=== PATIENT | male | born 1945 | race Caucasian/White ===

== ENCOUNTER 2016-10-01 05:38 | Inpatient (IN) | payer MEDICARE, BC ==
[~2016-10-01] VITALS: Ht 188 cm; Wt 90.7 kg
[2016-10-01] VITALS (12 sets, daily range): BP systolic 102–144; BP diastolic 65–87
[2016-10-01] MEDS ORDERED: DOXYCYCLINE HY100 M2 PO (06:59)
[2016-10-01] MEDS ORDERED: ATORVASTATIN CA20 MG ORAL (06:59)
[2016-10-01] MEDS ORDERED: ceFAZolin sod 1 GM in NS 55 ML IVPB ONE (07:00)
[2016-10-01] MEDS ORDERED: Zemuron 50mg/5ml Inj IV ONE (07:30)
[2016-10-01] MEDS ORDERED: Neostigmine 1mg/ml 10ml Inj ONE (07:30)
[2016-10-01] MEDS ORDERED: Succinylcholine 20mg/ml 10ml vial ONE (07:30)
[2016-10-01] MEDS ORDERED: ProvayBlue 5mg/ml 10ml amp INJ ONE (07:30)
[2016-10-01] MEDS ORDERED: Ketorolac 30mg Inj ONE (07:30)
[2016-10-01] MEDS ORDERED: Sterile Water Irrig 1000ml IRRIG ONE (07:30)
[2016-10-01] MEDS ORDERED: fentaNYL 250mcg/5ml ONE (07:30)
[2016-10-01] MEDS ORDERED: Glycopyrrolate 0.2mg/ml 1ml Vial ONE (07:30)
[2016-10-01] MEDS ORDERED: NS Irrig 1000ml ONE (07:30)
[2016-10-01] MEDS ORDERED: LR 1000ml ONE (07:30)
[2016-10-01] MEDS ORDERED: Propofol 10mg/ml 20ml IV ONE (07:30)
--- NOTE | 2016-10-01 07:39 | Pre-Procedure Note/Attestation ---
Pre-Procedure Note/Attestation Complete Prior to Procedure Planned Procedure: not applicable Procedure Narrative: open simple prostatectomy Indications for Procedure Pre-Operative Diagnosis: bph Attestation I attest that I discussed the nature of the procedure; its benefits; risks and complications; and alternatives (and the risks and benefits of such alternatives ), prior to the procedure, with the patient (or the patient's legal major account representative). I attest that, if there was a reasonable possibility of needing a blood transfusion, the patient (or the patient's legal major account representative) was given the [facility] standardized written summary, pursuant to the Edgard Antwon Blood Safety Act ([place] Health and Safety Code # 1645, as amended). I attest that I re-evaluated the patient just prior to the surgery and that there has been no change in the patient's H&P, except as documented below: Joseph Cedeno MD October 01, 2016 07:39
--- NOTE | 2016-10-01 07:40 | Brief Operative Note ---
Immediate Post Operative Note Operative Note Pre-op Diagnosis: bph Procedure: open simple prostatectomy Post-op Diagnosis: same Post-op Diagnosis: same as pre-op Surgeon: Shree Cedeno Manager Urology: Krishna Lea Anesthesia: general Specimen: yes Complications: none Condition: stable Estimated Blood Loss: minimal Implant(s) used?: No Joseph Cedeno MD October 01, 2016 07:40
--- NOTE | 2016-10-01 08:30 | Anethesia Preoperative Eval ---
Anesthesia Pre-op PMH/ROS General Date of Evaluation: October 01, 2016 Time of Evaluation: 07:15 Anesthesiologist: Raúl ASA Score: ASA 2 Mallampati Score Class I : Soft palate, uvula, fauces, pillars visible Class II: Soft palate, uvula, fauces visible Class III: Soft palate, base of uvula visible Class IV: Only hard plate visible Mallampati Classification: Class II Surgeon: Pao Diagnosis: BPH Urinary retention Surgical Procedure: Suprapubic prostateectomy Anesthesia History: none Social History: smoking - h/o Family History: no anesthesia problems Allergies: Coded Allergies: No Known Allergies (Unverified , 09/30/16) Medications: see eMAR Past Medical History Cardiovascular: Reports: HTN, Denies: CAD, ME, arrhythmia, other, valve dz Pulmonary: Denies: COPD, BOAZ, asthma, other Gastrointestinal/Genitourinary: Reports: GERD, Denies: CRI, ESRD, other Neurologic/Psychiatric: Denies: CVA, TIA, dementia, depression/anxiety, other Endocrine: Denies: DM, hypothyroidism, other, steroids HEENT: Denies: [place] (L), [place] (R), cataract (L), cataract (R), glaucoma, other Hematology/Immune: Denies: DVT, anemia, bleeding disorder, other Musculoskeletal/Integumentary: Reports: DJD, Denies: DDD, OA, RA, edema, other PMH Narrative: as above PSxH Narrative: L knee TKA excision of melanoma Anesthesia Pre-op Phys. Exam Physician Exam Last Vital Signs Date Time Temp Pulse Resp B/P Pulse Ox O2 Delivery O2 Flow Rate FiO2 10/01/16 06:31 97.8 60 18 127/81 95 Room Air Constitutional: NAD Neurologic: CN 2-12 intact Cardiovascular: RRR, no M/R/G Respiratory: CTA Gastrointestinal: S/NT/ND Airway Exam Mallampati Score: Class II Neck: stiff ROM: full Teeth: intact Dentures: no lower, no upper Anesthesia Pre-op A/P Labs see chart Studies Pre-op Studies: EKG - NSR Risk Assessment & Plan Assessment: ASA 2 Plan: GA with ETT Status Change Before Surgery: No Pre-Antibiotics Drug: Ancef 2 gr. Given Within 1 Hr of Incision: Yes Time Given: 08:02 LINDA BELTRAN M.D. October 01, 2016 08:29
[2016-10-01] MEDS ORDERED: LR 1000ml 1,000 ML IVLG SCH (08:43)
[2016-10-01] MEDS ORDERED: Midazolam 2mg/2ml Inj IVP PRN (08:45)
[2016-10-01] MEDS ORDERED: Hydromorphone 0.5mg/0.5ml inj IVP PRN (08:45)
[2016-10-01] MEDS ORDERED: DiphenhydrAMINE 50mg/ml Inj IVP PRN (08:45)
[2016-10-01] MEDS ORDERED: Meperidine 25mg/0.5ml Inj IV PRN (08:45)
[2016-10-01] MEDS ORDERED: Surgicel 4in x 8in TOPIC ONE (08:54)
[2016-10-01 10:00] LABS: BASOPHILS % (AUTO) 1.1 % (0.0-2.0); EOSINOPHILS % (AUTO) 3.9 % (0.0-3.0); LYMPHOCYTES % (AUTO) 22.3 % (20.0-45.0); MEAN CORPUSCULAR HEMOGLOBIN 29.3 PG (27.0-31.0); MEAN CORPUSCULAR HGB CONC 32.3 G/DL (32.0-36.0); MEAN CORPUSCULAR VOLUME 90 FL (80-99); MEAN PLATELET VOLUME 5.8 FL (6.5-10.1); MONOCYTES % (AUTO) 5.7 % (1.0-10.0); NEUTROPHILS % (AUTO) 67.1 % (45.0-75.0); PLATELET COUNT 253 K/UL (150-450); RED BLOOD COUNT 4.32 M/UL (4.70-6.10); RED CELL DISTRIBUTION WIDTH 13.8 % (11.6-14.8); WHITE BLOOD COUNT 10.1 K/UL (4.8-10.8)
--- NOTE | 2016-10-01 10:07 | Immediate Post-Op Evaluation ---
Immediate Post-Op Evalulation Immediate Post-Op Evalulation Procedure: Suprapubic prostateectomy Date of Evaluation: October 01, 2016 Time of Evaluation: 09:27 IV Fluids: 1600 Blood Products: Albumin 250 Estimated Blood Loss: 600 Urinary Output: 150 Blood Pressure Systolic: 128 Blood Pressure Diastolic: 76 Pulse Rate: 65 Respiratory Rate: 20 O2 Sat by Pulse Oximetry: 99 Temperature (Fahrenheit): 97.5 Pain Score (1-10): 2 Nausea: No Vomiting: No Complications none Patient Status: reacts, patent, extubated, none Hydration Status: adequate LINDA BELTRAN M.D. October 01, 2016 10:07
[2016-10-01 10:17] LABS: ANION GAP 10 (5-15); CALCIUM 8.9 mg/dL (8.6-10.2); CARBON DIOXIDE 28 mEQ/L (20-30); CHLORIDE 102 mEQ/L (98-107); CREATININE 0.9 mg/dL (0.7-1.2); HEMOLYSIS 4; POTASSIUM 4.4 mEQ/L (3.4-4.9); SODIUM 140 mEQ/L (135-145)
[2016-10-01] MEDS: HYDROmorphone 1mg/ml Carpuject IVP PRN (13:48)
[2016-10-01] MEDS: D5 1/2NS w/KCl 20mEq 1,000 ML IV SCH ×2 (13:56→23:04)
[2016-10-01] MEDS: ceFAZolin sod 2 GM in D5W 110 ML IV SCH ×2 (14:47→23:05)
[2016-10-01] MEDS: Docusate 100mg cap ORAL SCH (17:11)
[2016-10-01] MEDS ORDERED: ZOLPIDEM TARTRA10 MG ORAL (19:44)
[2016-10-01] MEDS ORDERED: OMEPRAZOLE40 M1 ORAL (19:44)
[2016-10-01] MEDS: Atorvastatin 20mg tab ORAL SCH (20:13)
[2016-10-01] MEDS ORDERED: Zolpidem 5mg tab ORAL PRN (20:30)
[2016-10-01] MEDS ORDERED: NS Irrig 4000ml IRRIG ONE (21:15)
[2016-10-01] MEDS ORDERED: Tubing IV Secondary IV ONE (21:15)
--- NOTE | 2016-10-01 21:49 | Operative Note - Dictated ---
DATE OF OPERATION: 10/01/2016 PREOPERATIVE DIAGNOSES: Benign prostatic hypertrophy and urinary retention. OPERATION: Simple retropubic prostatectomy. POSTOPERATIVE DIAGNOSES: Simple retropubic prostatectomy. SURGEON: Joseph Cedeno M.D. CUSTOMER SUCCESS MANAGER: Krishna Lea M.D. ANESTHESIA: General. FINDINGS: Enlarged prostate and trabeculated bladder. INDICATIONS FOR SURGERY: The patient had an enlarged prostate, close to 200 grams and urinary retention, intermittently catheterizing himself with severe irritating and obstructing voiding symptoms. Treatment options were explained to him in great length including all potential complications. He signed a consent. DESCRIPTION OF PROCEDURE: The patient was brought to the operating room, placed in supine position, prepped and draped in the standard fashion under general anesthesia. Pfannenstiel incision was made and retropubic space was opened. Rectus muscle was retracted lateral with [place] retractor. Prostate was mobilized from surrounding adhesions and fat and two stay sutures were placed on the superficial dorsal venous complex after the capsule of the prostate was opened and the prostate adenoma was enucleated in one piece using blunt and sharp dissection. After the prostate was removed, hemostasis was accomplished with electrocautery as well as with FLOSEAL. A 24 three-way Melendez catheter was placed into the bladder and capsule was closed prior to that, 5 o'clock and 7 o' clock [id number] 2-0 Vicryl sutures were placed and also bladder neck mucosa was advanced forward to prevent false passage in the urethra. After closure of the prostate, balloon was blown to 60 mL and mild traction was established. was started. There is no evidence of leak on the irrigation. The wound was closed in three layers and rona for the skin. The patient tolerated the procedure well. No evidence of complications. Joseph Cedeno M.D. DR: JAVI JOB#: [id number] CC:
[2016-10-02 00:18] VITALS: BP 111/67
[2016-10-02] MEDS: HYDROmorphone 1mg/ml Carpuject IVP PRN ×5 (02:59→23:35)
[2016-10-02 04:00] VITALS: BP 113/68
[2016-10-02 06:52] LABS: BASOPHILS % (AUTO) 0.4 % (0.0-2.0); EOSINOPHILS % (AUTO) 0.6 % (0.0-3.0); LYMPHOCYTES % (AUTO) 17.2 % (20.0-45.0); MEAN CORPUSCULAR HEMOGLOBIN 29.8 PG (27.0-31.0); MEAN CORPUSCULAR HGB CONC 33.7 G/DL (32.0-36.0); MEAN CORPUSCULAR VOLUME 89 FL (80-99); MEAN PLATELET VOLUME 6.1 FL (6.5-10.1); MONOCYTES % (AUTO) 7.6 % (1.0-10.0); NEUTROPHILS % (AUTO) 74.2 % (45.0-75.0); PLATELET COUNT 251 K/UL (150-450); RED BLOOD COUNT 3.86 M/UL (4.70-6.10); RED CELL DISTRIBUTION WIDTH 13.5 % (11.6-14.8); WHITE BLOOD COUNT 10.9 K/UL (4.8-10.8)
[2016-10-02 07:07] LABS: ANION GAP 10 (5-15); CALCIUM 8.7 mg/dL (8.6-10.2); CARBON DIOXIDE 31 mEQ/L (20-30); CHLORIDE 98 mEQ/L (98-107); CREATININE 0.7 mg/dL (0.7-1.2); HEMOLYSIS 4; POTASSIUM 4.5 mEQ/L (3.4-4.9); SODIUM 139 mEQ/L (135-145)
[2016-10-02 08:00] VITALS: BP 124/77
--- NOTE | 2016-10-02 08:06 | 48 Hour Post Anesthesia Eval ---
Post Anesthesia Evaluation Procedure: Suprapubic prostateectomy Date of Evaluation: October 02, 2016 Time of Evaluation: 06:30 Blood Pressure Systolic: 113 0: 68 Pulse Rate: 62 Respiratory Rate: 18 Temperature (Fahrenheit): 97.9 O2 Sat by Pulse Oximetry: 92 Airway: patent Nausea: No Vomiting: No Pain Intensity: 2 Hydration Status: adequate Cardiopulmonary Status: at baseline Mental Status/LOC: patient returned to baseline Post-Anesthesia Complications: 0 Follow-up care needed: N/A - further care as per primary team REHANA CUELLO M.D. October 02, 2016 08:06
[2016-10-02] MEDS ORDERED: NS Irrig 4000ml IRRIG ONE (08:20)
[2016-10-02] MEDS: D5 1/2NS w/KCl 20mEq 1,000 ML IV SCH (08:24)
[2016-10-02] MEDS: Docusate 100mg cap ORAL SCH ×2 (08:25→17:28)
[2016-10-02] MEDS: Tums 500mg ORAL PRN ×2 (10:49→10:50)
[2016-10-02 12:00] VITALS: BP 133/90
[2016-10-02] MEDS: Norco 5mg/325mg tab ORAL PRN ×2 (13:06→21:53)
--- NOTE | 2016-10-02 13:27 | Internal Med Progress Note ---
Subjective Physician Name IbanSelwyn cee Attending Physician Joseph Cedeno MD Current Medications Medications (Trade) Dose Ordered Sig/Bell Route PRN Reason Start Time Stop Time Status Last Admin Dose Admin Acetaminophen (Tylenol) 650 mg Q4H PRN ORAL FEVER 10/01/16 07:45 10/31/16 07:44 Acetaminophen/ Hydrocodone Bitart ([place] 5/325) 1 tab Q4H PRN ORAL Moderate Pain (Pain Scale 4-6) 10/01/16 07:45 10/08/16 07:44 10/02/16 13:06 Atorvastatin Calcium (Lipitor) 20 mg BEDTIME ORAL 10/01/16 21:00 10/31/16 20:59 10/01/16 20:13 Calcium Carbonate (Tums) 500 mg Q4H PRN ORAL INDIGESTION 10/02/16 11:00 11/01/16 10:59 10/02/16 10:50 Cefazolin Sodium/ Dextrose (Ancef/D5W) 55 ml @ 110 mls/hr Q8HR IVPB 10/02/16 14:00 10/09/16 13:59 Docusate Sodium (Colace) 100 mg TWICE A DAY ORAL 10/01/16 18:00 10/31/16 17:59 10/02/16 08:25 Hydromorphone HCl (Dilaudid) 1 mg Q3H PRN IVP Severe Pain (Pain Scale 7-10) 10/01/16 07:45 10/08/16 07:44 10/02/16 08:25 Ondansetron HCl (Zofran) 4 mg Q6H PRN IVP Nausea & Vomiting 10/01/16 07:45 10/31/16 07:44 10/02/16 02:59 Pantoprazole (Protonix) 40 mg DAILY ORAL 10/01/16 21:00 10/31/16 20:59 10/02/16 08:25 Temazepam (Restoril) 7.5 mg DAILYPRN PRN ORAL Insomnia 10/01/16 07:45 10/08/16 07:44 10/01/16 20:13 Zolpidem Tartrate 5 mg 5 mg HSPRN PRN ORAL Insomnia 10/01/16 20:30 10/31/16 20:29 10/01/16 21:43 Allergies: Coded Allergies: No Known Allergies (Unverified , 09/30/16) Subjective awake, alert, responsive, C/O GERD, feeling dizzy, No BM or gas, WBC: 10.9 Objective Last Vital Signs Date Time Temp Pulse Resp B/P Pulse Ox O2 Delivery O2 Flow Rate FiO2 10/02/16 12:00 97.5 73 18 133/90 93 Room Air 10/01/16 16:00 3.0 Laboratory Tests Test 10/02/16 06:00 White Blood Count 10.9 K/UL (4.8-10.8) H Red Blood Count 3.86 M/UL (4.70-6.10) L Hemoglobin 11.5 G/DL (14.2-18.0) L Hematocrit 34.2 % (42.0-52.0) L Mean Corpuscular Volume 89 FL (80-99) Mean Corpuscular Hemoglobin 29.8 PG (27.0-31.0) Mean Corpuscular Hemoglobin Concent 33.7 G/DL (32.0-36.0) Red Cell Distribution Width 13.5 % (11.6-14.8) Platelet Count 251 K/UL (150-450) Mean Platelet Volume 6.1 FL (6.5-10.1) L Neutrophils (%) (Auto) 74.2 % (45.0-75.0) Lymphocytes (%) (Auto) 17.2 % (20.0-45.0) L Monocytes (%) (Auto) 7.6 % (1.0-10.0) Eosinophils (%) (Auto) 0.6 % (0.0-3.0) Basophils (%) (Auto) 0.4 % (0.0-2.0) Sodium Level 139 mEQ/L (135-145) Potassium Level 4.5 mEQ/L (3.4-4.9) Chloride Level 98 mEQ/L (98-107) Carbon Dioxide Level 31 mEQ/L (20-30) H Anion Gap 10 (5-15) Blood Urea Nitrogen 17 mg/dL (7-23) Creatinine 0.7 mg/dL (0.7-1.2) Estimat Glomerular Filtration Rate mL/min (>60) Glucose Level 143 mg/dL (74-106) H Calcium Level 8.7 mg/dL (8.6-10.2) Intake and Output 10/01/16 10/02/16 19:00 07:00 Intake Total 62039 ml 1400 ml Output Total 35832 ml 1500 ml Balance 2060 ml -100 ml Intake Oral 600 ml 400 ml IV Total 2610 ml 1000 ml Other 30848 ml Output Urine Total 77650 ml 1500 ml Estimated Blood Loss 650 ml Objective General: No acute distress, awake and alert HEENT: NCAT, sclera anicteric, PERRL, EOMI. Neck: Supple, no significant jugular venous distention, Lungs: Fair inspiratory effort, no accessory muscle use, no Wheeze or Rales. Heart: Regular rate and rhythm, normal S1/S2, no murmurs Abdomen: soft, lower Q tenderness, Mild distended. decrease bowel sounds. Lower abdominal surgical incision with dry dressing. / Rectal: Melendez cath with red urine, Bladder irrigation. Extremities: No Cyanosis , clubbing or edema. Neuro: A&O x 3, Able to move all extremities Skin: warm, no rashes or lesions Psych: Normal mood and affect Assessment/Plan Assessment/Plan Benign prostatic hypertrophy and urinary retention s/p Simple retropubic prostatectomy (10/01/2016). GERD HL Melanoma on chest s/p resection Plan: Start Protonix Monitor Labs ambulation F/u with Dr. Cedeon recommendation. Selwyn Ferrera MD October 02, 2016 13:27
[2016-10-02] MEDS: ceFAZolin sod 1 GM in D5W 55 ML IVPB SCH ×2 (13:48→21:53)
[2016-10-02 16:00] VITALS: BP 120/70
[2016-10-02 20:00] VITALS: BP 116/77
[2016-10-02] MEDS: Atorvastatin 20mg tab ORAL SCH (21:53)
[2016-10-03 00:19] VITALS: BP 120/82
[2016-10-03] MEDS: Norco 5mg/325mg tab ORAL PRN (02:04)
[2016-10-03 04:00] VITALS: BP 144/94
[2016-10-03] MEDS: HYDROmorphone 1mg/ml Carpuject IVP PRN ×2 (04:03→09:32)
[2016-10-03 04:48] LABS: BASOPHILS % (AUTO) 0.4 % (0.0-2.0); EOSINOPHILS % (AUTO) 0.4 % (0.0-3.0); LYMPHOCYTES % (AUTO) 12.9 % (20.0-45.0); MEAN CORPUSCULAR HEMOGLOBIN 30.3 PG (27.0-31.0); MEAN CORPUSCULAR HGB CONC 34.3 G/DL (32.0-36.0); MEAN CORPUSCULAR VOLUME 88 FL (80-99); MEAN PLATELET VOLUME 6.2 FL (6.5-10.1); NEUTROPHILS % (AUTO) 78.4 % (45.0-75.0); PLATELET COUNT 246 K/UL (150-450); RED BLOOD COUNT 3.76 M/UL (4.70-6.10); RED CELL DISTRIBUTION WIDTH 13.1 % (11.6-14.8); WHITE BLOOD COUNT 15.4 K/UL (4.8-10.8)
[2016-10-03 05:14] LABS: ALANINE AMINOTRANSFERASE 12 U/L (3-41); ALBUMIN/GLOBULIN RATIO 1.6 (1.0-2.7); ANION GAP 10 (5-15); ASPARTATE AMINO TRANSFERASE 18 U/L (5-40); CALCIUM 8.3 mg/dL (8.6-10.2); CARBON DIOXIDE 28 mEQ/L (20-30); CHLORIDE 96 mEQ/L (98-107); CREATININE 0.5 mg/dL (0.7-1.2); HEMOLYSIS 0; MAGNESIUM 2.1 mg/dL (1.7-2.5); PHOSPHORUS 2.2 mg/dL (2.5-4.8); POTASSIUM 4.5 mEQ/L (3.4-4.9); SODIUM 134 mEQ/L (135-145); TOTAL PROTEIN 5.1 g/dL (6.6-8.7)
[2016-10-03] MEDS: ceFAZolin sod 1 GM in D5W 55 ML IVPB SCH ×3 (06:03→21:12)
[2016-10-03 08:00] VITALS: BP 132/85
[2016-10-03] MEDS: Docusate 100mg cap ORAL SCH ×2 (08:24→17:35)
[2016-10-03] MEDS ORDERED: Milk of Magnesia 30ml Ud ORAL PRN (11:00)
[2016-10-03 12:00] VITALS: BP 123/67
[2016-10-03] MEDS ORDERED: Norco 5mg/325mg tab ORAL PRN (12:00)
--- NOTE | 2016-10-03 12:01 | Internal Med Progress Note ---
Subjective Physician Name IbanSelwyn cee Attending Physician Joseph Cedeno MD Current Medications Medications (Trade) Dose Ordered Sig/Bell Route PRN Reason Start Time Stop Time Status Last Admin Dose Admin Acetaminophen (Tylenol) 650 mg Q4H PRN ORAL Fever/Headache/Mild Pain 10/03/16 12:00 11/02/16 11:59 Acetaminophen/ Hydrocodone Bitart ([place] 5/325) 1 tab Q4H PRN ORAL Severe Pain (Pain Scale 7-10) 10/03/16 12:00 10/10/16 11:59 Al Hydroxide/Mg Hydroxide (Mylanta) 30 ml Q6H PRN ORAL INDIGESTION 10/02/16 14:30 11/01/16 14:29 10/02/16 14:25 Atorvastatin Calcium (Lipitor) 20 mg BEDTIME ORAL 10/01/16 21:00 10/31/16 20:59 10/02/16 21:53 Calcium Carbonate (Tums) 500 mg Q4H PRN ORAL INDIGESTION 10/02/16 11:00 11/01/16 10:59 10/02/16 10:50 Cefazolin Sodium/ Dextrose (Ancef/D5W) 55 ml @ 110 mls/hr Q8HR IVPB 10/02/16 14:00 10/09/16 13:59 10/03/16 06:03 Docusate Sodium (Colace) 100 mg TWICE A DAY ORAL 10/01/16 18:00 10/31/16 17:59 10/03/16 08:24 Magnesium Hydroxide (Mom) 30 ml DAILYPRN PRN ORAL Constipation 10/03/16 11:00 11/02/16 10:59 Ondansetron HCl (Zofran) 4 mg Q6H PRN IVP Nausea & Vomiting 10/01/16 07:45 10/31/16 07:44 10/03/16 09:38 Pantoprazole 40 mg 40 mg DAILY ORAL 10/01/16 21:00 10/31/16 20:59 10/03/16 08:24 Temazepam (Restoril) 7.5 mg DAILYPRN PRN ORAL Insomnia 10/01/16 07:45 10/08/16 07:44 10/02/16 21:53 Allergies: Coded Allergies: No Known Allergies (Unverified , 09/30/16) Subjective awake, alert, responsive, C/O GERD / Back pain, No BM or gas, increase WBC: 15.4 Objective Last Vital Signs Date Time Temp Pulse Resp B/P Pulse Ox O2 Delivery O2 Flow Rate FiO2 10/03/16 08:00 97.0 91 20 132/85 97 Room Air 10/03/16 04:00 2.0 Laboratory Tests Test 10/03/16 04:20 White Blood Count 15.4 K/UL (4.8-10.8) H Red Blood Count 3.76 M/UL (4.70-6.10) L Hemoglobin 11.4 G/DL (14.2-18.0) L Hematocrit 33.2 % (42.0-52.0) L Mean Corpuscular Volume 88 FL (80-99) Mean Corpuscular Hemoglobin 30.3 PG (27.0-31.0) Mean Corpuscular Hemoglobin Concent 34.3 G/DL (32.0-36.0) Red Cell Distribution Width 13.1 % (11.6-14.8) Platelet Count 246 K/UL (150-450) Mean Platelet Volume 6.2 FL (6.5-10.1) L Neutrophils (%) (Auto) 78.4 % (45.0-75.0) H Lymphocytes (%) (Auto) 12.9 % (20.0-45.0) L Monocytes (%) (Auto) 8.0 % (1.0-10.0) Eosinophils (%) (Auto) 0.4 % (0.0-3.0) Basophils (%) (Auto) 0.4 % (0.0-2.0) Sodium Level 134 mEQ/L (135-145) L Potassium Level 4.5 mEQ/L (3.4-4.9) Chloride Level 96 mEQ/L (98-107) L Carbon Dioxide Level 28 mEQ/L (20-30) Anion Gap 10 (5-15) Blood Urea Nitrogen 28 mg/dL (7-23) H Creatinine 0.5 mg/dL (0.7-1.2) L Estimat Glomerular Filtration Rate mL/min (>60) Glucose Level 140 mg/dL (74-106) H Calcium Level 8.3 mg/dL (8.6-10.2) L Phosphorus Level 2.2 mg/dL (2.5-4.8) L Magnesium Level 2.1 mg/dL (1.7-2.5) Total Bilirubin 0.2 mg/dL (0.0-1.2) Aspartate Amino Transf (AST/SGOT) 18 U/L (5-40) Alanine Aminotransferase (ALT/SGPT) 12 U/L (3-41) Alkaline Phosphatase 53 U/L (40-129) Total Protein 5.1 g/dL (6.6-8.7) L Albumin 3.2 g/dL (3.5-5.2) L Globulin 1.9 g/dL Albumin/Globulin Ratio 1.6 (1.0-2.7) Microbiology Date/Time Source Procedure Growth Status 10/01/16 06:20 Nasal Nares MRSA Culture - Final NO METHICILLIN RESISTANT STAPH AUREUS... Complete Intake and Output 10/02/16 10/03/16 19:00 07:00 Intake Total 1015 ml 705 ml Output Total 750 ml 300 ml Balance 265 ml 405 ml Intake Oral 960 ml 650 ml IV Total 55 ml 55 ml Output Urine Total 750 ml 300 ml Objective General: No acute distress, awake and alert HEENT: NCAT, sclera anicteric, PERRL, EOMI. Neck: Supple, no significant jugular venous distention, Lungs: Fair inspiratory effort, no accessory muscle use, no Wheeze or Rales. Heart: Regular rate and rhythm, normal S1/S2, no murmurs Abdomen: soft, less lower Q tenderness, Mild distended. decrease bowel sounds. Lower abdominal surgical incision with dry dressing. / Rectal: Melendez cath with clear urine, DC Bladder irrigation. Extremities: No Cyanosis , clubbing or edema. Neuro: A&O x 3, Able to move all extremities Skin: warm, no rashes or lesions Psych: Normal mood and affect Assessment/Plan Assessment/Plan Benign prostatic hypertrophy and urinary retention s/p Simple retropubic prostatectomy (10/01/2016). GERD HL Melanoma on chest s/p resection leukocytosis Lower back pain Hyponatremia pre-renal azotemia. Plan: On Protonix Monitor Labs ambulation F/u with Dr. Cedeno recommendation. Start IVF @ 75 cc/hr start Lidoderm patch and Robaxin TID Selwyn Ferrera MD October 03, 2016 12:01
[2016-10-03] MEDS: Methocarbamol 500mg tab ORAL SCH ×2 (13:40→17:36)
[2016-10-03 16:00] VITALS: BP 146/94
[2016-10-03] MEDS ORDERED: NS Irrig 4000ml IRRIG ONE (18:24)
[2016-10-03] MEDS ORDERED: NS 275ml ONE (18:24)
[2016-10-03 20:27] VITALS: BP 134/76
[2016-10-03] MEDS: Atorvastatin 20mg tab ORAL SCH (21:11)
[2016-10-04] VITALS (7 sets, daily range): BP systolic 94–126; BP diastolic 49–72
[2016-10-04] MEDS: ceFAZolin sod 1 GM in D5W 55 ML IVPB SCH ×3 (06:24→22:00)
[2016-10-04 07:15] LABS: ANION GAP 12 (5-15); CALCIUM 7.8 mg/dL (8.6-10.2); CARBON DIOXIDE 28 mEQ/L (20-30); CHLORIDE 91 mEQ/L (98-107); CREATININE 0.7 mg/dL (0.7-1.2); HEMOLYSIS 3; MAGNESIUM 2.4 mg/dL (1.7-2.5); POTASSIUM 4.3 mEQ/L (3.4-4.9); SODIUM 131 mEQ/L (135-145)
[2016-10-04 08:13] LABS: MEAN CORPUSCULAR VOLUME 88 FL (80-99)
[2016-10-04 08:36] LABS: BASOPHILS % (AUTO) 0.4 % (0.0-2.0); EOSINOPHILS % (AUTO) 0.2 % (0.0-3.0); LYMPHOCYTES % (AUTO) 12.1 % (20.0-45.0); NEUTROPHILS % (AUTO) 79.3 % (45.0-75.0)
[2016-10-04 08:45] LABS: MEAN CORPUSCULAR HEMOGLOBIN 30.2 PG (27.0-31.0); MEAN CORPUSCULAR HGB CONC 34.3 G/DL (32.0-36.0); MEAN PLATELET VOLUME 6.4 FL (6.5-10.1); PLATELET COUNT 197 K/UL (150-450); RED BLOOD COUNT 2.39 M/UL (4.70-6.10); RED CELL DISTRIBUTION WIDTH 12.9 % (11.6-14.8); WHITE BLOOD COUNT 14.9 K/UL (4.8-10.8)
[2016-10-04] MEDS: Docusate 100mg cap ORAL SCH ×2 (09:00→18:00)
[2016-10-04 09:15] LABS: BAND NEUTROPHILS % (MANUAL) 2 % (0-8); LYMPHOCYTES % (MANUAL) 4 % (20-45); NEUTROPHILS % (MANUAL) 91 % (45-75); TOTAL CELLS COUNTED 100
[2016-10-04 09:16] LABS: ANISOCYTOSIS 1+; BASOPHILS % (MANUAL) 0 % (0-2); EOSINOPHILS % (MANUAL) 0 % (0-3); HYPOCHROMASIA 3+; PLATELET ESTIMATE ADEQUATE; PLATELET MORPHOLOGY NORMAL
[2016-10-04] MEDS: Methocarbamol 500mg tab ORAL SCH ×3 (10:35→18:00)
--- NOTE | 2016-10-04 10:40 | Diagnostic Imaging Report ---
Indication: Abdominal pain Technique: Supine views of the abdomen Comparison: None Findings: Bowel gas pattern is nonspecific. Degenerative changes of the spine are seen. Lower abdominal/pelvic skin rona are present. Impression: Nonobstructive and nonspecific bowel gas pattern. Clinical correlation recommended.
--- NOTE | 2016-10-04 18:20 | Internal Med Progress Note ---
Subjective Date of Service: October 04, 2016 Physician Name Zheng Call Attending Physician Joseph Cedeno MD Current Medications Medications (Trade) Dose Ordered Sig/Bell Route PRN Reason Start Time Stop Time Status Last Admin Dose Admin Acetaminophen (Tylenol) 650 mg Q4H PRN ORAL Fever/Headache/Mild Pain 10/03/16 12:00 11/02/16 11:59 Acetaminophen/ Hydrocodone Bitart ([place] 5/325) 1 tab Q4H PRN ORAL Severe Pain (Pain Scale 7-10) 10/03/16 12:00 10/10/16 11:59 10/03/16 15:59 Al Hydroxide/Mg Hydroxide (Mylanta) 30 ml Q6H PRN ORAL INDIGESTION 10/02/16 14:30 11/01/16 14:29 10/02/16 14:25 Atorvastatin Calcium 20 mg 20 mg BEDTIME ORAL 10/01/16 21:00 10/31/16 20:59 10/03/16 21:11 Calcium Carbonate (Tums) 500 mg Q4H PRN ORAL INDIGESTION 10/02/16 11:00 11/01/16 10:59 10/02/16 10:50 Cefazolin Sodium/ Dextrose (Ancef/D5W) 55 ml @ 110 mls/hr Q8HR IVPB 10/02/16 14:00 10/09/16 13:59 10/04/16 14:42 Docusate Sodium (Colace) 100 mg TWICE A DAY ORAL 10/01/16 18:00 10/31/16 17:59 10/03/16 17:35 Lidocaine (Lidoderm 5% PATCH) 1 patch DAILY TDERMAL 10/03/16 12:30 11/02/16 12:29 10/04/16 10:36 Magnesium Hydroxide 30 ml 30 ml DAILYPRN PRN ORAL Constipation 10/03/16 11:00 11/02/16 10:59 10/03/16 17:36 Methocarbamol (Robaxin) 500 mg TID ORAL 10/03/16 13:00 11/02/16 12:59 10/04/16 10:35 Ondansetron HCl (Zofran) 4 mg Q6H PRN IVP Nausea & Vomiting 10/01/16 07:45 10/31/16 07:44 10/04/16 02:06 Pantoprazole (Protonix) 40 mg EVERY 12 HOURS ORAL 10/04/16 11:00 11/03/16 10:59 10/04/16 10:36 Sodium Chloride (Sodium Chloride 1000ml bag) 1,000 ml @ 75 mls/hr [id number] IV 10/03/16 12:30 11/02/16 12:29 10/04/16 02:19 Temazepam (Restoril) 7.5 mg DAILYPRN PRN ORAL Insomnia 10/01/16 07:45 10/08/16 07:44 10/03/16 21:13 Allergies: Coded Allergies: No Known Allergies (Unverified , 09/30/16) ROS Limited/Unobtainable: No Constitutional: Reports: no symptoms HEENT: Reports: no symptoms Cardiovascular: Reports: no symptoms Respiratory: Reports: no symptoms Gastrointestinal/Abdominal: Reports: nausea Genitourinary: Reports: no symptoms Neurologic/Psychiatric: Reports: no symptoms Subjective 71 YO M S/P prostatectomy 10/01/16. Nausea earlier. cover for Int Med-Dr Ferrera. Objective Last Vital Signs Date Time Temp Pulse Resp B/P Pulse Ox O2 Delivery O2 Flow Rate FiO2 10/04/16 16:00 96.8 98 20 104/49 96 Room Air 10/04/16 12:00 2.0 Laboratory Tests Test 10/04/16 06:20 10/04/16 08:00 10/04/16 08:14 Sodium Level 131 mEQ/L (135-145) L Potassium Level 4.3 mEQ/L (3.4-4.9) Chloride Level 91 mEQ/L (98-107) L Carbon Dioxide Level 28 mEQ/L (20-30) Anion Gap 12 (5-15) Blood Urea Nitrogen 35 mg/dL (7-23) H Creatinine 0.7 mg/dL (0.7-1.2) Estimat Glomerular Filtration Rate mL/min (>60) Glucose Level 152 mg/dL (74-106) H Calcium Level 7.8 mg/dL (8.6-10.2) L Phosphorus Level 2.0 mg/dL (2.5-4.8) L Magnesium Level 2.4 mg/dL (1.7-2.5) White Blood Count 14.9 K/UL (4.8-10.8) H Red Blood Count 2.39 M/UL (4.70-6.10) L Hemoglobin 7.2 G/DL (14.2-18.0) #L Hematocrit 21.1 % (42.0-52.0) #L Mean Corpuscular Volume 88 FL (80-99) Mean Corpuscular Hemoglobin 30.2 PG (27.0-31.0) Mean Corpuscular Hemoglobin Concent 34.3 G/DL (32.0-36.0) Red Cell Distribution Width 12.9 % (11.6-14.8) Platelet Count 197 K/UL (150-450) Mean Platelet Volume 6.4 FL (6.5-10.1) L Neutrophils (%) (Auto) 79.3 % (45.0-75.0) H Lymphocytes (%) (Auto) 12.1 % (20.0-45.0) L Monocytes (%) (Auto) 8.0 % (1.0-10.0) Eosinophils (%) (Auto) 0.2 % (0.0-3.0) Basophils (%) (Auto) 0.4 % (0.0-2.0) Differential Total Cells Counted 100 Neutrophils % (Manual) 91 % (45-75) H Lymphocytes % (Manual) 4 % (20-45) L Monocytes % (Manual) 3 % (1-10) Eosinophils % (Manual) 0 % (0-3) Basophils % (Manual) 0 % (0-2) Band Neutrophils 2 % (0-8) Platelet Estimate Adequate Platelet Morphology Normal Hypochromasia 3+ Anisocytosis 1+ Stool Occult Blood Pending Intake and Output 10/03/16 10/04/16 19:00 07:00 Intake Total 4080 ml 825 ml Output Total 2500 ml Balance 1580 ml 825 ml Intake Oral 2050 ml IV Total 430 ml 825 ml Other 1600 ml Output Urine Total 2500 ml # Bowel Movements 1 Objective Objective General: No acute distress, awake and alert HEENT: NCAT, sclera anicteric, PERRL, EOMI. Neck: Supple, no significant jugular venous distention, Lungs: Fair inspiratory effort, no accessory muscle use, no Wheeze or Rales. Heart: Regular rate and rhythm, normal S1/S2, no murmurs Abdomen: soft, less lower Q tenderness, Mild distended. decrease bowel sounds. Lower abdominal surgical incision with dry dressing. / Rectal: Melendez cath with clear urine, DC Bladder irrigation. Extremities: No Cyanosis , clubbing or edema. Neuro: A&O x 3, Able to move all extremities Skin: warm, no rashes or lesions Psych: Normal mood and affect Assessment/Plan Problem List: (1) BPH (benign prostatic hypertrophy) Assessment & Plan: S/P prostatectomy 10/01/16. Cont cefazolin (2) GERD (gastroesophageal reflux disease) (3) Leukocytosis Status: progressing ZHENG CALL October 04, 2016 18:20
[2016-10-04] MEDS ORDERED: LORazepam 1mg tab ORAL PRN (20:00)
[2016-10-04] MEDS ORDERED: LORazepam Inj 2mg/ml 1ml IV PRN (20:15)
[2016-10-04] MEDS: Atorvastatin 20mg tab ORAL SCH (21:26)
[2016-10-04] MEDS ORDERED: D5 1/2NS w/KCl 20mEq 1,000 ML IV SCH (22:00)
[2016-10-04 23:05] LABS: MEAN CORPUSCULAR HEMOGLOBIN 32.8 PG (27.0-31.0); MEAN CORPUSCULAR HGB CONC 35.7 G/DL (32.0-36.0); MEAN CORPUSCULAR VOLUME 92 FL (80-99); PLATELET COUNT 159 K/UL (150-450); RED BLOOD COUNT 2.02 M/UL (4.70-6.10); RED CELL DISTRIBUTION WIDTH 13.7 % (11.6-14.8); WHITE BLOOD COUNT 12.9 K/UL (4.8-10.8)
[2016-10-05] VITALS (12 sets, daily range): BP systolic 97–131; BP diastolic 49–82
[2016-10-05 01:35] LABS: ABG ALLEN TEST POSITIVE; ABG BASE EXCESS 1.8; ABG PCO2 21.2 mmHg (35.0-45.0)
[2016-10-05 02:05] LABS: MEAN CORPUSCULAR HEMOGLOBIN 31.2 PG (27.0-31.0); MEAN CORPUSCULAR HGB CONC 35.6 G/DL (32.0-36.0); MEAN CORPUSCULAR VOLUME 88 FL (80-99); MEAN PLATELET VOLUME 7.1 FL (6.5-10.1); PLATELET COUNT 176 K/UL (150-450); RED BLOOD COUNT 1.92 M/UL (4.70-6.10); RED CELL DISTRIBUTION WIDTH 13.5 % (11.6-14.8); WHITE BLOOD COUNT 11.9 K/UL (4.8-10.8)
[2016-10-05] MEDS ORDERED: Tums 500mg ORAL PRN (03:00)
[2016-10-05] MEDS ORDERED: Norco 5mg/325mg tab ORAL PRN (04:00)
[2016-10-05] MEDS ORDERED: Pantoprazole 80 MG in NS 250 ML IV SCH ×2 (06:00→07:00)
[2016-10-05] MEDS: ceFAZolin sod 1 GM in D5W 55 ML IVPB SCH ×3 (06:00→23:57)
[2016-10-05] MEDS ORDERED: Pantoprazole Inj ONE (06:25)
[2016-10-05] MEDS ORDERED: Pantoprazole Inj IVP ONE (06:30)
[2016-10-05 06:43] LABS: MEAN CORPUSCULAR HEMOGLOBIN 30.5 PG (27.0-31.0); MEAN CORPUSCULAR HGB CONC 34.4 G/DL (32.0-36.0); MEAN CORPUSCULAR VOLUME 89 FL (80-99); MEAN PLATELET VOLUME 6.4 FL (6.5-10.1); PLATELET COUNT 198 K/UL (150-450); RED BLOOD COUNT 2.01 M/UL (4.70-6.10); RED CELL DISTRIBUTION WIDTH 13.5 % (11.6-14.8); WHITE BLOOD COUNT 11.1 K/UL (4.8-10.8)
[2016-10-05 07:00] LABS: ANION GAP 11 (5-15); CALCIUM 7.6 mg/dL (8.6-10.2); CARBON DIOXIDE 26 mEQ/L (20-30); CHLORIDE 95 mEQ/L (98-107); CREATININE 0.8 mg/dL (0.7-1.2); HEMOLYSIS 2; INR 1.1 (0.9-1.1); MAGNESIUM 2.4 mg/dL (1.7-2.5); PROTHROMBIN TIME 10.9 SEC (9.30-11.50); SODIUM 132 mEQ/L (135-145)
[2016-10-05 07:01] LABS: TROPONIN I < 0.30 ng/mL (<=0.30)
[2016-10-05] MEDS ORDERED: Propofol 10mg/ml 20ml IV ONE (08:00)
[2016-10-05] MEDS ORDERED: Lidocaine 1% MPF 10mg/ml 5ml ONE (08:00)
--- NOTE | 2016-10-05 08:05 | Pre-Procedure Note/Attestation ---
Pre-Procedure Note/Attestation Complete Prior to Procedure Planned Procedure: not applicable Procedure Narrative: egd Indications for Procedure Pre-Operative Diagnosis: gib Attestation I attest that I discussed the nature of the procedure; its benefits; risks and complications; and alternatives (and the risks and benefits of such alternatives ), prior to the procedure, with the patient (or the patient's legal contact center representative). I attest that, if there was a reasonable possibility of needing a blood transfusion, the patient (or the patient's legal contact center representative) was given the [facility] standardized written summary, pursuant to the Edgard Antwon Blood Safety Act ([place] Health and Safety Code # 1645, as amended). I attest that I re-evaluated the patient just prior to the surgery and that there has been no change in the patient's H&P, except as documented below: LUCITA WELDON October 05, 2016 08:05
[2016-10-05 08:11] LABS: ANISOCYTOSIS 1+; BAND NEUTROPHILS % (MANUAL) 0 % (0-8); BASOPHILS % (MANUAL) 1 % (0-2); EOSINOPHILS % (MANUAL) 0 % (0-3); HYPOCHROMASIA 4+; LYMPHOCYTES % (MANUAL) 18 % (20-45); NEUTROPHILS % (MANUAL) 75 % (45-75); NUCLEATED RED BLOOD CELLS 5 /100 WBC; PLATELET ESTIMATE ADEQUATE; PLATELET MORPHOLOGY NORMAL; POLYCHROMASIA 2+; SPHEROCYTES 2+; TOTAL CELLS COUNTED 100
[2016-10-05] MEDS ORDERED: LORazepam Inj 2mg/ml 1ml IV PRN (08:15)
--- NOTE | 2016-10-05 08:38 | Anethesia Preoperative Eval ---
Anesthesia Pre-op PMH/ROS General Date of Evaluation: October 05, 2016 Anesthesiologist: Bubba ASA Score: ASA 2 - E Mallampati Score Class I : Soft palate, uvula, fauces, pillars visible Class II: Soft palate, uvula, fauces visible Class III: Soft palate, base of uvula visible Class IV: Only hard plate visible Mallampati Classification: Class II Surgeon: Dany Diagnosis: GI bleed Surgical Procedure: EGD Anesthesia History: none Family History: no anesthesia problems Allergies: Coded Allergies: No Known Allergies (Unverified , 09/30/16) Medications: see eMAR Past Medical History Cardiovascular: Reports: HTN, other - HLD, Denies: CAD, [place], arrhythmia, valve dz Pulmonary: Denies: COPD, BOAZ, asthma, other Gastrointestinal/Genitourinary: Reports: GERD, other - BPH, suspected active GI bleed h/h 11/08 s/p 2 units PRBCS, Denies: CRI, ESRD Neurologic/Psychiatric: Denies: CVA, TIA, dementia, depression/anxiety, other Endocrine: Denies: DM, hypothyroidism, other, steroids HEENT: Denies: AMBLER (L), AMBLER (R), cataract (L), cataract (R), glaucoma, other Hematology/Immune: Denies: DVT, anemia, bleeding disorder, other Musculoskeletal/Integumentary: Reports: DJD, Denies: DDD, OA, RA, edema, other PSxH Narrative: Left TKR, UHR, prostatectomy Anesthesia Pre-op Phys. Exam Physician Exam Last Vital Signs Date Time Temp Pulse Resp B/P Pulse Ox O2 Delivery O2 Flow Rate FiO2 10/05/16 08:07 98.2 98 19 101/67 93 Nasal Cannula 10/05/16 04:00 5.0 Constitutional: NAD Cardiovascular: RRR Respiratory: CTA Airway Exam Mallampati Score: Class II MO: full ROM: full Teeth: intact Anesthesia Pre-op A/P Labs Hematology Test 10/04/16 22:50 10/05/16 01:50 10/05/16 06:21 White Blood Count 12.9 K/UL (4.8-10.8) H 11.9 K/UL (4.8-10.8) H 11.1 K/UL (4.8-10.8) H Red Blood Count 2.02 M/UL (4.70-6.10) L 1.92 M/UL (4.70-6.10) L 2.01 M/UL (4.70-6.10) L Hemoglobin 6.6 G/DL (14.2-18.0) *L 6.0 G/DL (14.2-18.0) *L 6.1 G/DL (14.2-18.0) *L Hematocrit 18.6 % (42.0-52.0) L 16.8 % (42.0-52.0) L 17.8 % (42.0-52.0) L Mean Corpuscular Volume 92 FL (80-99) 88 FL (80-99) 89 FL (80-99) Mean Corpuscular Hemoglobin 32.8 PG (27.0-31.0) H 31.2 PG (27.0-31.0) H 30.5 PG (27.0-31.0) Mean Corpuscular Hemoglobin Concent 35.7 G/DL (32.0-36.0) 35.6 G/DL (32.0-36.0) 34.4 G/DL (32.0-36.0) Red Cell Distribution Width 13.7 % (11.6-14.8) 13.5 % (11.6-14.8) 13.5 % (11.6-14.8) Platelet Count 159 K/UL (150-450) 176 K/UL (150-450) 198 K/UL (150-450) Mean Platelet Volume 7.0 FL (6.5-10.1) 7.1 FL (6.5-10.1) 6.4 FL (6.5-10.1) L Neutrophils (%) (Auto) % (45.0-75.0) % (45.0-75.0) % (45.0-75.0) Lymphocytes (%) (Auto) % (20.0-45.0) % (20.0-45.0) % (20.0-45.0) Monocytes (%) (Auto) % (1.0-10.0) % (1.0-10.0) % (1.0-10.0) Eosinophils (%) (Auto) % (0.0-3.0) % (0.0-3.0) % (0.0-3.0) Basophils (%) (Auto) % (0.0-2.0) % (0.0-2.0) % (0.0-2.0) Differential Total Cells Counted 100 Neutrophils % (Manual) 75 % (45-75) Lymphocytes % (Manual) 18 % (20-45) L Monocytes % (Manual) 6 % (1-10) Eosinophils % (Manual) 0 % (0-3) Basophils % (Manual) 1 % (0-2) Band Neutrophils 0 % (0-8) Nucleated Red Blood Cells 5 /100 WBC Platelet Estimate Adequate Platelet Morphology Normal Polychromasia 2+ Hypochromasia 4+ Anisocytosis 1+ Spherocytes 2+ Coagulation Test 10/05/16 06:21 Prothrombin Time 10.9 SEC (9.30-11.50) Prothromb Time International Ratio 1.1 (0.9-1.1) Activated Partial Thromboplast Time 23 SEC (23-33) Chemistry Test 10/05/16 06:21 Sodium Level 132 mEQ/L (135-145) L Potassium Level 5.0 mEQ/L (3.4-4.9) H Chloride Level 95 mEQ/L (98-107) L Carbon Dioxide Level 26 mEQ/L (20-30) Anion Gap 11 (5-15) Blood Urea Nitrogen 53 mg/dL (7-23) H Creatinine 0.8 mg/dL (0.7-1.2) Estimat Glomerular Filtration Rate mL/min (>60) Glucose Level 132 mg/dL (74-106) H Calcium Level 7.6 mg/dL (8.6-10.2) L Phosphorus Level 2.0 mg/dL (2.5-4.8) L Magnesium Level 2.4 mg/dL (1.7-2.5) Troponin I < 0.30 ng/mL (<=0.30) Risk Assessment & Plan Assessment: ASA IIE Plan: MAC Status Change Before Surgery: No Pre-Antibiotics Drug: N/A REHANA CUELLO M.D. October 05, 2016 08:38
--- NOTE | 2016-10-05 08:56 | Immediate Post-Op Evaluation ---
Immediate Post-Op Evalulation Immediate Post-Op Evalulation Procedure: Suprapubic prostateectomy Date of Evaluation: October 05, 2016 Time of Evaluation: 08:55 IV Fluids: 500 Blood Products: 1 PRBC Estimated Blood Loss: 0 Urinary Output: 0 Blood Pressure Systolic: 116 Blood Pressure Diastolic: 63 Pulse Rate: 81 Respiratory Rate: 16 O2 Sat by Pulse Oximetry: 98 Temperature (Fahrenheit): 97.4 Pain Score (1-10): 0 Nausea: No Vomiting: No Complications 0 Patient Status: awake, reacts, patent, none Hydration Status: adequate Drug: N/A REHANA CUELLO M.D. October 05, 2016 08:55
[2016-10-05] MEDS ORDERED: DiphenhydrAMINE 50mg/ml Inj IVP PRN (09:00)
[2016-10-05] MEDS ORDERED: NS 275ml ONE (09:25)
[2016-10-05] MEDS: Pantoprazole 80 MG in NS 250 ML IV SCH ×2 (09:28→18:40)
[2016-10-05] MEDS: Methocarbamol 500mg tab ORAL SCH ×3 (09:29→18:39)
[2016-10-05] MEDS: Sucralfate 1gm tab ORAL SCH ×4 (09:29→21:24)
[2016-10-05] MEDS: Docusate 100mg cap ORAL SCH ×2 (09:29→18:39)
--- NOTE | 2016-10-05 10:15 | Diagnostic Imaging Report ---
Indication: Chest pain Technique: XRAY CHEST 1 V Comparison: None Findings: Cardiac silhouette is prominent. Linear opacities are noted in the left mid and lower lung way. Mild perihilar interstitial prominence is noted. Cardiac silhouette is mildly prominent. Atherosclerotic changes are seen. Degenerative changes of the spine are noted. Right axillary clips are seen. Impression: Linear opacities of the left mid and lower lung way could represent atelectasis with superimposed infection not excluded. Clinical correlation/followup recommended.
[2016-10-05] MEDS ORDERED: Milk of Magnesia 30ml Ud ORAL PRN (11:00)
--- NOTE | 2016-10-05 11:52 | General Progress Note ---
Assessment/Plan Status Narrative GI bleeding unknown ethiology. STAT GI consult Transfuse 2 units PRBC Call me with the results of Hb Assessment/Plan GI stat for EGD Blood transfusion Subjective Date patient seen: October 04, 2016 Time patient seen: 05:00 Constitutional: Reports: weakness HEENT: Reports: no symptoms Gastrointestinal/Abdominal: Reports: black stools, difficulty swallowing, vomiting Genitourinary: Reports: hematuria Allergies: Coded Allergies: No Known Allergies (Unverified , 09/30/16) All Systems: reviewed and negative except above Objective Last 24 Hour Vital Signs Date Time Temp Pulse Resp B/P Pulse Ox O2 Delivery O2 Flow Rate FiO2 10/05/16 09:30 98.4 94 20 116/82 97 Simple Mask 6.0 10/05/16 09:05 97.2 79 20 116/71 96 Simple Mask 6.0 10/05/16 09:00 80 19 131/69 97 Simple Mask 6.0 10/05/16 08:55 78 21 130/70 100 Simple Mask 6.0 10/05/16 08:55 81 16 98 10/05/16 08:50 97.4 79 18 121/70 98 Simple Mask 6.0 10/05/16 08:07 98.2 98 19 101/67 93 Nasal Cannula 10/05/16 04:00 98.2 100 20 120/54 95 Room Air 5.0 10/05/16 03:45 100 10/05/16 02:28 93 10/05/16 01:50 98.2 100 20 120/59 95 Room Air 10/05/16 00:00 98.4 99 19 121/61 96 Nasal Cannula 5.0 10/04/16 22:43 98.2 102 115/57 10/04/16 20:00 96.6 101 19 96/51 96 Room Air 10/04/16 16:00 96.8 98 20 104/49 96 Room Air 10/04/16 12:00 97.9 63 20 109/65 96 Nasal Cannula 2.0 Intake and Output 10/04/16 10/05/16 19:00 07:00 Intake Total 50 ml 105 ml Output Total 400 ml 600 ml Balance -350 ml -495 ml IV Total 55 ml Other 50 ml 50 ml Output Urine Total 400 ml 600 ml # Bowel Movements 1 Laboratory Tests 10/04/16 22:50: White Blood Count 12.9H, Red Blood Count 2.02L, Hemoglobin 6.6*L, Hematocrit 18.6L, Mean Corpuscular Volume 92, Mean Corpuscular Hemoglobin 32.8H, Mean Corpuscular Hemoglobin Concent 35.7, Red Cell Distribution Width 13.7, Platelet Count 159, Mean Platelet Volume 7.0, Neutrophils (%) (Auto) , Lymphocytes (%) ( Auto) , Monocytes (%) (Auto) , Eosinophils (%) (Auto) , Basophils (%) (Auto) 10/05/16 01:30: Arterial Blood pH 7.640*H, Arterial Blood Partial Pressure CO2 21.2*L, Arterial Blood Partial Pressure O2 180.4H, Arterial Blood HCO3 22.6, Arterial Blood Oxygen Saturation 98.2H, Arterial Blood Base Excess 1.8, Anup Test Positive 10/05/16 01:50: White Blood Count 11.9H, Red Blood Count 1.92L, Hemoglobin 6.0*L, Hematocrit 16.8L, Mean Corpuscular Volume 88, Mean Corpuscular Hemoglobin 31.2H, Mean Corpuscular Hemoglobin Concent 35.6, Red Cell Distribution Width 13.5, Platelet Count 176, Mean Platelet Volume 7.1, Neutrophils (%) (Auto) , Lymphocytes (%) ( Auto) , Monocytes (%) (Auto) , Eosinophils (%) (Auto) , Basophils (%) (Auto) 10/05/16 06:21: White Blood Count 11.1H, Red Blood Count 2.01L, Hemoglobin 6.1*L, Hematocrit 17.8L, Mean Corpuscular Volume 89, Mean Corpuscular Hemoglobin 30.5, Mean Corpuscular Hemoglobin Concent 34.4, Red Cell Distribution Width 13.5, Platelet Count 198, Mean Platelet Volume 6.4L, Neutrophils (%) (Auto) , Lymphocytes (%) ( Auto) , Monocytes (%) (Auto) , Eosinophils (%) (Auto) , Basophils (%) (Auto) , Differential Total Cells Counted 100, Neutrophils % (Manual) 75, Lymphocytes % ( Manual) 18L, Monocytes % (Manual) 6, Eosinophils % (Manual) 0, Basophils % ( Manual) 1, Band Neutrophils 0, Nucleated Red Blood Cells 5, Platelet Estimate Adequate, Platelet Morphology Normal, Polychromasia 2+, Hypochromasia 4+, Anisocytosis 1+, Spherocytes 2+, Prothrombin Time 10.9, Prothromb Time International Ratio 1.1, Activated Partial Thromboplast Time 23, Sodium Level 132L, Potassium Level 5.0H, Chloride Level 95L, Carbon Dioxide Level 26, Anion Gap 11, Blood Urea Nitrogen 53H, Creatinine 0.8, Estimat Glomerular Filtration Rate , Glucose Level 132H, Calcium Level 7.6L, Phosphorus Level 2.0L, Magnesium Level 2.4, Troponin I < 0.30 Height (Feet): 6 Height (Inches): 2.00 Weight (Pounds): 200 Abdomen: non tender, no mass Joseph Cedeno MD October 05, 2016 11:52
--- NOTE | 2016-10-05 12:01 | General Progress Note ---
Assessment/Plan Status: stable Status Narrative EGD - erosive esophagitis Assessment/Plan Blood transfusion NPO Possible removal aragon tomorrow Subjective Date patient seen: October 05, 2016 Time patient seen: 11:58 ROS Limited/Unobtainable: Yes Constitutional: Reports: no symptoms Respiratory: Reports: no symptoms Gastrointestinal/Abdominal: Reports: tarry stools Genitourinary: Reports: no symptoms Allergies: Coded Allergies: No Known Allergies (Unverified , 09/30/16) Objective Last 24 Hour Vital Signs Date Time Temp Pulse Resp B/P Pulse Ox O2 Delivery O2 Flow Rate FiO2 10/05/16 09:30 98.4 94 20 116/82 97 Simple Mask 6.0 10/05/16 09:05 97.2 79 20 116/71 96 Simple Mask 6.0 10/05/16 09:00 80 19 131/69 97 Simple Mask 6.0 10/05/16 08:55 78 21 130/70 100 Simple Mask 6.0 10/05/16 08:55 81 16 98 10/05/16 08:50 97.4 79 18 121/70 98 Simple Mask 6.0 10/05/16 08:07 98.2 98 19 101/67 93 Nasal Cannula 10/05/16 04:00 98.2 100 20 120/54 95 Room Air 5.0 10/05/16 03:45 100 10/05/16 02:28 93 10/05/16 01:50 98.2 100 20 120/59 95 Room Air 10/05/16 00:00 98.4 99 19 121/61 96 Nasal Cannula 5.0 10/04/16 22:43 98.2 102 115/57 10/04/16 20:00 96.6 101 19 96/51 96 Room Air 10/04/16 16:00 96.8 98 20 104/49 96 Room Air 10/04/16 12:00 97.9 63 20 109/65 96 Nasal Cannula 2.0 Intake and Output 10/04/16 10/05/16 19:00 07:00 Intake Total 50 ml 105 ml Output Total 400 ml 600 ml Balance -350 ml -495 ml IV Total 55 ml Other 50 ml 50 ml Output Urine Total 400 ml 600 ml # Bowel Movements 1 Laboratory Tests 10/04/16 22:50: White Blood Count 12.9H, Red Blood Count 2.02L, Hemoglobin 6.6*L, Hematocrit 18.6L, Mean Corpuscular Volume 92, Mean Corpuscular Hemoglobin 32.8H, Mean Corpuscular Hemoglobin Concent 35.7, Red Cell Distribution Width 13.7, Platelet Count 159, Mean Platelet Volume 7.0, Neutrophils (%) (Auto) , Lymphocytes (%) ( Auto) , Monocytes (%) (Auto) , Eosinophils (%) (Auto) , Basophils (%) (Auto) 10/05/16 01:30: Arterial Blood pH 7.640*H, Arterial Blood Partial Pressure CO2 21.2*L, Arterial Blood Partial Pressure O2 180.4H, Arterial Blood HCO3 22.6, Arterial Blood Oxygen Saturation 98.2H, Arterial Blood Base Excess 1.8, Anup Test Positive 10/05/16 01:50: White Blood Count 11.9H, Red Blood Count 1.92L, Hemoglobin 6.0*L, Hematocrit 16.8L, Mean Corpuscular Volume 88, Mean Corpuscular Hemoglobin 31.2H, Mean Corpuscular Hemoglobin Concent 35.6, Red Cell Distribution Width 13.5, Platelet Count 176, Mean Platelet Volume 7.1, Neutrophils (%) (Auto) , Lymphocytes (%) ( Auto) , Monocytes (%) (Auto) , Eosinophils (%) (Auto) , Basophils (%) (Auto) 10/05/16 06:21: White Blood Count 11.1H, Red Blood Count 2.01L, Hemoglobin 6.1*L, Hematocrit 17.8L, Mean Corpuscular Volume 89, Mean Corpuscular Hemoglobin 30.5, Mean Corpuscular Hemoglobin Concent 34.4, Red Cell Distribution Width 13.5, Platelet Count 198, Mean Platelet Volume 6.4L, Neutrophils (%) (Auto) , Lymphocytes (%) ( Auto) , Monocytes (%) (Auto) , Eosinophils (%) (Auto) , Basophils (%) (Auto) , Differential Total Cells Counted 100, Neutrophils % (Manual) 75, Lymphocytes % ( Manual) 18L, Monocytes % (Manual) 6, Eosinophils % (Manual) 0, Basophils % ( Manual) 1, Band Neutrophils 0, Nucleated Red Blood Cells 5, Platelet Estimate Adequate, Platelet Morphology Normal, Polychromasia 2+, Hypochromasia 4+, Anisocytosis 1+, Spherocytes 2+, Prothrombin Time 10.9, Prothromb Time International Ratio 1.1, Activated Partial Thromboplast Time 23, Sodium Level 132L, Potassium Level 5.0H, Chloride Level 95L, Carbon Dioxide Level 26, Anion Gap 11, Blood Urea Nitrogen 53H, Creatinine 0.8, Estimat Glomerular Filtration Rate , Glucose Level 132H, Calcium Level 7.6L, Phosphorus Level 2.0L, Magnesium Level 2.4, Troponin I < 0.30 Height (Feet): 6 Height (Inches): 2.00 Weight (Pounds): 200 General Appearance: WD/WN EENT: PERRL/EOMI Neck: non-tender Cardiovascular: normal rate Respiratory/Chest: lungs clear Abdomen: normal bowel sounds, non tender, soft Pelvis: normal external exam Extremities: normal range of motion Skin: normal pigmentation Joseph Cedeno MD October 05, 2016 12:01
--- NOTE | 2016-10-05 12:32 | Consultation ---
History of Present Illness General Date patient seen: October 05, 2016 Chief Complaint: hemorrhagic shock Referring physician: dr Ferrera Reason for Consultation: Inpatient management Present Illness HPI 71 year old with recent prostectomy with persistent bleeding from aragon and large hematoma on his right arm, transferred to [facility] because of dropping H/H. Pt has upper endoscopy this morning showing upper GI erosion. Pt is npo. asking for food. Allergies: Coded Allergies: No Known Allergies (Unverified , 09/30/16) Medication History Scheduled Atorvastatin Calcium* (Atorvastatin Calcium*), 20 MG ORAL BEDTIME, (Reported) Doxycycline Hyclate (Doxycycline Hyclate), 100 MG PO BID, (Reported) Omeprazole (Omeprazole), 40 MG ORAL DAILY, (Reported) Scheduled PRN Zolpidem Tartrate* (Zolpidem Tartrate*), 10 MG ORAL BEDTIME PRN for Insomnia, ( Reported) Patient History Healthcare decision maker pt A&Ox4 Resuscitation status Full Code Advanced Directive on File No Family History Family History: (1) Melanoma Review of Systems All Other Systems: negative except mentioned in HPI Physical Exam General Appearance: WD/WN, no apparent distress Lines, tubes and drains: peripheral HEENT: normocephalic, atraumatic Neck: non-tender, normal alignment Respiratory/Chest: chest wall non-tender, lungs clear Cardiovascular/Chest: normal peripheral pulses, normal rate Abdomen: normal bowel sounds, non tender Genitourinary/Rectal: normal genital exam Extremities: normal range of motion Neurologic: sap functional analyst II-XII grossly normal Last 24 Hour Vital Signs Date Time Temp Pulse Resp B/P Pulse Ox O2 Delivery O2 Flow Rate FiO2 10/05/16 09:30 98.4 94 20 116/82 97 Simple Mask 6.0 10/05/16 09:05 97.2 79 20 116/71 96 Simple Mask 6.0 10/05/16 09:00 80 19 131/69 97 Simple Mask 6.0 10/05/16 08:55 78 21 130/70 100 Simple Mask 6.0 10/05/16 08:55 81 16 98 10/05/16 08:50 97.4 79 18 121/70 98 Simple Mask 6.0 10/05/16 08:07 98.2 98 19 101/67 93 Nasal Cannula 10/05/16 08:00 96 10/05/16 04:00 98.2 100 20 120/54 95 Room Air 5.0 10/05/16 03:45 100 10/05/16 02:28 93 10/05/16 01:50 98.2 100 20 120/59 95 Room Air 10/05/16 00:00 98.4 99 19 121/61 96 Nasal Cannula 5.0 10/04/16 22:43 98.2 102 115/57 10/04/16 20:00 96.6 101 19 96/51 96 Room Air 10/04/16 16:00 96.8 98 20 104/49 96 Room Air Intake and Output 10/04/16 10/05/16 19:00 07:00 Intake Total 50 ml 105 ml Output Total 400 ml 600 ml Balance -350 ml -495 ml IV Total 55 ml Other 50 ml 50 ml Output Urine Total 400 ml 600 ml # Bowel Movements 1 Laboratory Tests Test 10/04/16 22:50 10/05/16 01:30 10/05/16 01:50 10/05/16 06:21 White Blood Count 12.9 K/UL (4.8-10.8) H 11.9 K/UL (4.8-10.8) H 11.1 K/UL (4.8-10.8) H Red Blood Count 2.02 M/UL (4.70-6.10) L 1.92 M/UL (4.70-6.10) L 2.01 M/UL (4.70-6.10) L Hemoglobin 6.6 G/DL (14.2-18.0) *L 6.0 G/DL (14.2-18.0) *L 6.1 G/DL (14.2-18.0) *L Hematocrit 18.6 % (42.0-52.0) L 16.8 % (42.0-52.0) L 17.8 % (42.0-52.0) L Mean Corpuscular Volume 92 FL (80-99) 88 FL (80-99) 89 FL (80-99) Mean Corpuscular Hemoglobin 32.8 PG (27.0-31.0) H 31.2 PG (27.0-31.0) H 30.5 PG (27.0-31.0) Mean Corpuscular Hemoglobin Concent 35.7 G/DL (32.0-36.0) 35.6 G/DL (32.0-36.0) 34.4 G/DL (32.0-36.0) Red Cell Distribution Width 13.7 % (11.6-14.8) 13.5 % (11.6-14.8) 13.5 % (11.6-14.8) Platelet Count 159 K/UL (150-450) 176 K/UL (150-450) 198 K/UL (150-450) Mean Platelet Volume 7.0 FL (6.5-10.1) 7.1 FL (6.5-10.1) 6.4 FL (6.5-10.1) L Neutrophils (%) (Auto) % (45.0-75.0) % (45.0-75.0) % (45.0-75.0) Lymphocytes (%) (Auto) % (20.0-45.0) % (20.0-45.0) % (20.0-45.0) Monocytes (%) (Auto) % (1.0-10.0) % (1.0-10.0) % (1.0-10.0) Eosinophils (%) (Auto) % (0.0-3.0) % (0.0-3.0) % (0.0-3.0) Basophils (%) (Auto) % (0.0-2.0) % (0.0-2.0) % (0.0-2.0) Arterial Blood pH 7.640 (7.350-7.450) Arterial Blood Partial Pressure CO2 21.2 mmHg (35.0-45.0) *L Arterial Blood Partial Pressure O2 180.4 mmHg (75.0-100.0) H Arterial Blood HCO3 22.6 mmol/L (22.0-26.0) Arterial Blood Oxygen Saturation 98.2 % (92.0-98.0) H Arterial Blood Base Excess 1.8 Anup Test Positive Differential Total Cells Counted 100 Neutrophils % (Manual) 75 % (45-75) Lymphocytes % (Manual) 18 % (20-45) L Monocytes % (Manual) 6 % (1-10) Eosinophils % (Manual) 0 % (0-3) Basophils % (Manual) 1 % (0-2) Band Neutrophils 0 % (0-8) Nucleated Red Blood Cells 5 /100 WBC Platelet Estimate Adequate Platelet Morphology Normal Polychromasia 2+ Hypochromasia 4+ Anisocytosis 1+ Spherocytes 2+ Prothrombin Time 10.9 SEC (9.30-11.50) Prothromb Time International Ratio 1.1 (0.9-1.1) Activated Partial Thromboplast Time 23 SEC (23-33) Sodium Level 132 mEQ/L (135-145) L Potassium Level 5.0 mEQ/L (3.4-4.9) H Chloride Level 95 mEQ/L (98-107) L Carbon Dioxide Level 26 mEQ/L (20-30) Anion Gap 11 (5-15) Blood Urea Nitrogen 53 mg/dL (7-23) H Creatinine 0.8 mg/dL (0.7-1.2) Estimat Glomerular Filtration Rate mL/min (>60) Glucose Level 132 mg/dL (74-106) H Calcium Level 7.6 mg/dL (8.6-10.2) L Phosphorus Level 2.0 mg/dL (2.5-4.8) L Magnesium Level 2.4 mg/dL (1.7-2.5) Troponin I < 0.30 ng/mL (<=0.30) Height (Feet): 6 Height (Inches): 2.00 Weight (Pounds): 200 Medications Current Medications Medications (Trade) Dose Ordered Sig/Bell Route PRN Reason Start Time Stop Time Status Last Admin Dose Admin Acetaminophen (Tylenol) 650 mg Q4H PRN ORAL Fever/Headache/Mild Pain 10/05/16 04:00 11/04/16 03:59 Acetaminophen/ Hydrocodone Bitart ([place] 5/325) 1 tab Q4H PRN ORAL Severe Pain (Pain Scale 7-10) 10/05/16 04:00 10/12/16 03:59 Al Hydroxide/Mg Hydroxide (Mylanta) 30 ml Q6H PRN ORAL INDIGESTION 10/05/16 08:30 11/04/16 08:29 Atorvastatin Calcium (Lipitor) 20 mg BEDTIME ORAL 10/05/16 21:00 11/04/16 20:59 Calcium Carbonate (Tums) 500 mg Q4H PRN ORAL INDIGESTION 10/05/16 03:00 11/04/16 02:59 Cefazolin Sodium/ Dextrose (Ancef/D5W) 55 ml @ 110 mls/hr Q8HR IVPB 10/05/16 06:00 10/12/16 05:59 10/05/16 06:00 Docusate Sodium (Colace) 100 mg TWICE A DAY ORAL 10/05/16 09:00 11/04/16 08:59 10/05/16 09:29 Lidocaine (Lidoderm 5% PATCH) 1 patch DAILY TDERMAL 10/05/16 09:00 11/04/16 08:59 Lorazepam (Ativan 2mg/ml 1ml) 1 mg Q6H PRN IV For Anxiety 10/05/16 08:15 10/12/16 08:14 Magnesium Hydroxide (Mom) 30 ml DAILYPRN PRN ORAL Constipation 10/05/16 11:00 11/04/16 10:59 Methocarbamol (Robaxin) 500 mg TID ORAL 10/05/16 09:00 11/04/16 08:59 10/05/16 09:29 Ondansetron HCl (Zofran) 4 mg Q6H PRN IVP Nausea & Vomiting 10/05/16 07:45 11/04/16 07:44 Pantoprazole/ Sodium Chloride (Protonix/Sodium Chloride) 250 ml @ 25 mls/hr Q10H IV 10/05/16 09:00 11/04/16 08:59 10/05/16 09:28 Sucralfate (Carafate) 1 gm FOUR TIMES A DAY ORAL 10/05/16 09:00 11/04/16 08:59 10/05/16 09:29 Temazepam 7.5 mg 7.5 mg DAILYPRN PRN ORAL Insomnia 10/05/16 07:45 10/12/16 07:44 Assessment/Plan Problem List: (1) Hemorrhagic shock SNOMED: 460743 (2) Subcutaneous hematoma ICD Codes: T14.8 - Other injury of unspecified body region SNOMED: 6880609 (3) GERD (gastroesophageal reflux disease) ICD Codes: K21.9 - Gastro-esophageal reflux disease without esophagitis SNOMED: 427672322 (4) Leukocytosis ICD Codes: D72.829 - Elevated white blood cell count, unspecified SNOMED: 395764270, 491075975 (5) BPH (benign prostatic hypertrophy) ICD Codes: N40.0 - Benign prostatic hyperplasia without lower urinary tract symptoms SNOMED: 024346860, 189140815 Assessment/Plan Keep NPO IV fluids check electrolytes tranfuse prbc prn check pt/ptt dvt prophylaxis D/W ROSLYN Nolasco October 05, 2016 12:32
--- NOTE | 2016-10-05 13:56 | Internal Med Progress Note ---
Subjective Date of Service: October 05, 2016 Physician Name CallJaida Attending Physician Joseph Cedeno MD Current Medications Medications (Trade) Dose Ordered Sig/Bell Route PRN Reason Start Time Stop Time Status Last Admin Dose Admin Acetaminophen (Tylenol) 650 mg Q4H PRN ORAL Fever/Headache/Mild Pain 10/05/16 04:00 11/04/16 03:59 Acetaminophen/ Hydrocodone Bitart ([place] 5/325) 1 tab Q4H PRN ORAL Severe Pain (Pain Scale 7-10) 10/05/16 04:00 10/12/16 03:59 Al Hydroxide/Mg Hydroxide (Mylanta) 30 ml Q6H PRN ORAL INDIGESTION 10/05/16 08:30 11/04/16 08:29 Atorvastatin Calcium (Lipitor) 20 mg BEDTIME ORAL 10/05/16 21:00 11/04/16 20:59 Calcium Carbonate (Tums) 500 mg Q4H PRN ORAL INDIGESTION 10/05/16 03:00 11/04/16 02:59 Cefazolin Sodium/ Dextrose (Ancef/D5W) 55 ml @ 110 mls/hr Q8HR IVPB 10/05/16 06:00 10/12/16 05:59 10/05/16 06:00 Dextrose/Sodium Chloride (D5ns) 1,000 ml @ 75 mls/hr [id number] IV 10/06/16 02:00 11/05/16 01:59 Docusate Sodium (Colace) 100 mg TWICE A DAY ORAL 10/05/16 09:00 11/04/16 08:59 10/05/16 09:29 Lidocaine (Lidoderm 5% PATCH) 1 patch DAILY TDERMAL 10/05/16 09:00 11/04/16 08:59 10/05/16 09:00 Lorazepam (Ativan 2mg/ml 1ml) 1 mg Q6H PRN IV For Anxiety 10/05/16 08:15 10/12/16 08:14 Magnesium Hydroxide (Mom) 30 ml DAILYPRN PRN ORAL Constipation 10/05/16 11:00 11/04/16 10:59 Methocarbamol (Robaxin) 500 mg TID ORAL 10/05/16 09:00 11/04/16 08:59 10/05/16 09:29 Multivitamins 1 ml/Dextrose/ Sodium Chloride 1,001 ml @ 75 mls/hr Q24H IV 10/05/16 14:00 11/04/16 13:59 Ondansetron HCl (Zofran) 4 mg Q6H PRN IVP Nausea & Vomiting 10/05/16 07:45 11/04/16 07:44 Pantoprazole/ Sodium Chloride (Protonix/Sodium Chloride) 250 ml @ 25 mls/hr Q10H IV 10/05/16 09:00 11/04/16 08:59 10/05/16 09:28 Sucralfate 1 gm 1 gm FOUR TIMES A DAY ORAL 10/05/16 09:00 11/04/16 08:59 10/05/16 09:29 Temazepam 7.5 mg 7.5 mg DAILYPRN PRN ORAL Insomnia 10/05/16 07:45 10/12/16 07:44 Allergies: Coded Allergies: No Known Allergies (Unverified , 09/30/16) ROS Limited/Unobtainable: Yes Subjective 71 YO M S/P prostatectomy 10/01/16. Transferred to [facility] for decreasing hemoglobin and oxygen saturation. Cover for Int Med-Dr Ferrera. S/P endoscopy today, 10/05/16. S/P transfusion 4 units PRBC Objective Last Vital Signs Date Time Temp Pulse Resp B/P Pulse Ox O2 Delivery O2 Flow Rate FiO2 10/05/16 12:00 83 10/05/16 12:00 98.2 19 111/75 95 Nasal Cannula 10/05/16 09:30 6.0 Laboratory Tests Test 10/04/16 22:50 10/05/16 01:30 10/05/16 01:50 10/05/16 06:21 White Blood Count 12.9 K/UL (4.8-10.8) H 11.9 K/UL (4.8-10.8) H 11.1 K/UL (4.8-10.8) H Red Blood Count 2.02 M/UL (4.70-6.10) L 1.92 M/UL (4.70-6.10) L 2.01 M/UL (4.70-6.10) L Hemoglobin 6.6 G/DL (14.2-18.0) *L 6.0 G/DL (14.2-18.0) *L 6.1 G/DL (14.2-18.0) *L Hematocrit 18.6 % (42.0-52.0) L 16.8 % (42.0-52.0) L 17.8 % (42.0-52.0) L Mean Corpuscular Volume 92 FL (80-99) 88 FL (80-99) 89 FL (80-99) Mean Corpuscular Hemoglobin 32.8 PG (27.0-31.0) H 31.2 PG (27.0-31.0) H 30.5 PG (27.0-31.0) Mean Corpuscular Hemoglobin Concent 35.7 G/DL (32.0-36.0) 35.6 G/DL (32.0-36.0) 34.4 G/DL (32.0-36.0) Red Cell Distribution Width 13.7 % (11.6-14.8) 13.5 % (11.6-14.8) 13.5 % (11.6-14.8) Platelet Count 159 K/UL (150-450) 176 K/UL (150-450) 198 K/UL (150-450) Mean Platelet Volume 7.0 FL (6.5-10.1) 7.1 FL (6.5-10.1) 6.4 FL (6.5-10.1) L Neutrophils (%) (Auto) % (45.0-75.0) % (45.0-75.0) % (45.0-75.0) Lymphocytes (%) (Auto) % (20.0-45.0) % (20.0-45.0) % (20.0-45.0) Monocytes (%) (Auto) % (1.0-10.0) % (1.0-10.0) % (1.0-10.0) Eosinophils (%) (Auto) % (0.0-3.0) % (0.0-3.0) % (0.0-3.0) Basophils (%) (Auto) % (0.0-2.0) % (0.0-2.0) % (0.0-2.0) Arterial Blood pH 7.640 (7.350-7.450) Arterial Blood Partial Pressure CO2 21.2 mmHg (35.0-45.0) *L Arterial Blood Partial Pressure O2 180.4 mmHg (75.0-100.0) H Arterial Blood HCO3 22.6 mmol/L (22.0-26.0) Arterial Blood Oxygen Saturation 98.2 % (92.0-98.0) H Arterial Blood Base Excess 1.8 Anup Test Positive Differential Total Cells Counted 100 Neutrophils % (Manual) 75 % (45-75) Lymphocytes % (Manual) 18 % (20-45) L Monocytes % (Manual) 6 % (1-10) Eosinophils % (Manual) 0 % (0-3) Basophils % (Manual) 1 % (0-2) Band Neutrophils 0 % (0-8) Nucleated Red Blood Cells 5 /100 WBC Platelet Estimate Adequate Platelet Morphology Normal Polychromasia 2+ Hypochromasia 4+ Anisocytosis 1+ Spherocytes 2+ Prothrombin Time 10.9 SEC (9.30-11.50) Prothromb Time International Ratio 1.1 (0.9-1.1) Activated Partial Thromboplast Time 23 SEC (23-33) Sodium Level 132 mEQ/L (135-145) L Potassium Level 5.0 mEQ/L (3.4-4.9) H Chloride Level 95 mEQ/L (98-107) L Carbon Dioxide Level 26 mEQ/L (20-30) Anion Gap 11 (5-15) Blood Urea Nitrogen 53 mg/dL (7-23) H Creatinine 0.8 mg/dL (0.7-1.2) Estimat Glomerular Filtration Rate mL/min (>60) Glucose Level 132 mg/dL (74-106) H Calcium Level 7.6 mg/dL (8.6-10.2) L Phosphorus Level 2.0 mg/dL (2.5-4.8) L Magnesium Level 2.4 mg/dL (1.7-2.5) Troponin I < 0.30 ng/mL (<=0.30) Intake and Output 10/04/16 10/05/16 19:00 07:00 Intake Total 50 ml 105 ml Output Total 400 ml 600 ml Balance -350 ml -495 ml IV Total 55 ml Other 50 ml 50 ml Output Urine Total 400 ml 600 ml # Bowel Movements 1 Objective Objective General: No acute distress, awake and alert HEENT: NCAT, sclera anicteric, PERRL, EOMI. Neck: Supple, no significant jugular venous distention, Lungs: Fair inspiratory effort, no accessory muscle use, no Wheeze or Rales. Heart: Regular rate and rhythm, normal S1/S2, no murmurs Abdomen: soft, less lower Q tenderness, Mild distended. decrease bowel sounds. Lower abdominal surgical incision with dry dressing. / Rectal: Melendez cath with clear urine, DC Bladder irrigation. Extremities: No Cyanosis , clubbing or edema. Neuro: A&O x 3, Able to move all extremities Skin: warm, no rashes or lesions Psych: Normal mood and affect Assessment/Plan Problem List: (1) BPH (benign prostatic hypertrophy) Assessment & Plan: S/P prostatectomy 10/01/16. Cont cefazolin (2) GERD (gastroesophageal reflux disease) (3) Leukocytosis (4) Severe anemia Assessment & Plan: S/P transfusion 2 units PRBC 10/04 and 2 units PRBC 10/05/16. S/P endoscopy 10/05/16-gastric erosions. (5) Subcutaneous hematoma (6) Upper gastrointestinal bleeding Assessment & Plan: See GI note. Protonix drip Status: deteriorating JAIDA CALL October 05, 2016 13:56
[2016-10-05] MEDS ORDERED: D5NS IV SCH (14:00)
[2016-10-05] MEDS ORDERED: MULTIVITAMIN IV SCH (14:00)
[2016-10-05] MEDS ORDERED: NS 550ML IV ONE (16:08)
[2016-10-05] MEDS ORDERED: Tubing Blood Filter IV ONE (16:08)
[2016-10-05 16:26] LABS: MEAN CORPUSCULAR HEMOGLOBIN 29.7 PG (27.0-31.0); MEAN CORPUSCULAR HGB CONC 34.1 G/DL (32.0-36.0); MEAN CORPUSCULAR VOLUME 87 FL (80-99); MEAN PLATELET VOLUME 6.3 FL (6.5-10.1); PLATELET COUNT 167 K/UL (150-450); RED BLOOD COUNT 2.39 M/UL (4.70-6.10); RED CELL DISTRIBUTION WIDTH 12.9 % (11.6-14.8); WHITE BLOOD COUNT 10.5 K/UL (4.8-10.8)
[2016-10-05 17:05] LABS: ALANINE AMINOTRANSFERASE 9 U/L (3-41); ANION GAP 12 (5-15); ASPARTATE AMINO TRANSFERASE 22 U/L (5-40); CALCIUM 7.7 mg/dL (8.6-10.2); CARBON DIOXIDE 25 mEQ/L (20-30); CHLORIDE 98 mEQ/L (98-107); CREATININE 0.6 mg/dL (0.7-1.2); HEMOLYSIS 3; MAGNESIUM 2.3 mg/dL (1.7-2.5); PHOSPHORUS 1.7 mg/dL (2.5-4.8); POTASSIUM 4.5 mEQ/L (3.4-4.9); SODIUM 135 mEQ/L (135-145); TOTAL PROTEIN 4.3 g/dL (6.6-8.7)
--- NOTE | 2016-10-05 17:39 | Procedure Note ---
DATE OF PROCEDURE: 10/05/2016 SURGEON: Jono Saenz M.D. PROCEDURE: Upper endoscopy with biopsy. ANESTHESIOLOGIST: . INSTRUMENT: Olympus adult flexible upper endoscope. INDICATION: Upper gastrointestinal bleeding. REASON FOR PROCEDURE: The procedure, risks, benefits, and possible consequences, including hemorrhage, aspiration, perforation and infection, and alternative treatments, were explained to the patient/legal guardian by Dr. Jono Saenz and the patient/legal guardian understood and accepted these risks. DESCRIPTION OF PROCEDURE: After informed consent was obtained and the patient was adequately sedated, Olympus upper endoscope was advanced from the mouth into the second portion of the duodenum and retroflexion was performed in the stomach. The patient had evidence of large hiatal hernia with associated distal esophagitis. Actually, one third of distal esophagus was very inflamed, some spots were black and narcotic looking, very friable, and even suction on the mucosa will cause oozing blood. This is most probably the source of bleeding. At this time, there is no focal ulcer or vessel that treat. The patient has diffuse distal esophagitis and inflammation and necrosis. At this time, the scope was advanced back into the antrum and random biopsy from antrum was obtained to rule out H. pylori infection. The patient tolerated the procedure well without any complication. SUMMARY OF FINDINGS: 1. Severe distal esophagitis, inflammation, possible necrosis, very friable tissue, most probably the source of bleeding. 2. Gastritis, status post biopsy. 3. Large hiatal hernia. PLAN: 1. Keep the patient NPO for today. 2. Transfuse to keep hemoglobin above 8. 3. PPI intravenous and Carafate p.o. 4. Evaluate the patient tomorrow. Consider to start clear liquid diet tomorrow if the patient is stable. I want to thank, Dr. Selwyn Ferrera, for this kind referral. Jono Saenz M.D. DR: MIR JOB#: [id number] CC: Selwyn Ferrera M.D.; Fax#: [phone]
[2016-10-05 18:13] LABS: BAND NEUTROPHILS % (MANUAL) 2 % (0-8); TOTAL CELLS COUNTED 100
[2016-10-05 18:15] LABS: EOSINOPHILS % (MANUAL) 2 % (0-3); LYMPHOCYTES % (MANUAL) 16 % (20-45); NEUTROPHILS % (MANUAL) 70 % (45-75)
[2016-10-05 18:20] LABS: BASOPHILS % (MANUAL) 0 % (0-2); HYPOCHROMASIA 2+; PLATELET ESTIMATE ADEQUATE; PLATELET MORPHOLOGY NORMAL
[2016-10-05 18:22] LABS: ANISOCYTOSIS 1+
[2016-10-05] MEDS ORDERED: Atorvastatin 20mg tab ORAL SCH (21:00)
[2016-10-06 00:12] VITALS: BP 134/53
[2016-10-06] MEDS ORDERED: D5NS 1,000 ML IV SCH ×2 (02:00→14:30)
[2016-10-06 04:09] VITALS: BP 130/70
[2016-10-06] MEDS: Pantoprazole 80 MG in NS 250 ML IV SCH ×2 (05:03→14:30)
[2016-10-06 05:50] LABS: MEAN CORPUSCULAR HEMOGLOBIN 30.4 PG (27.0-31.0); MEAN CORPUSCULAR HGB CONC 34.9 G/DL (32.0-36.0); MEAN CORPUSCULAR VOLUME 87 FL (80-99); MEAN PLATELET VOLUME 6.2 FL (6.5-10.1); PLATELET COUNT 144 K/UL (150-450); RED BLOOD COUNT 2.23 M/UL (4.70-6.10); RED CELL DISTRIBUTION WIDTH 13.6 % (11.6-14.8); WHITE BLOOD COUNT 7.2 K/UL (4.8-10.8)
[2016-10-06] MEDS: ceFAZolin sod 1 GM in D5W 55 ML IVPB SCH ×3 (06:04→21:10)
[2016-10-06 06:15] LABS: ALANINE AMINOTRANSFERASE 9 U/L (3-41); ALBUMIN/GLOBULIN RATIO 1.2 (1.0-2.7); ANION GAP 10 (5-15); ASPARTATE AMINO TRANSFERASE 21 U/L (5-40); CALCIUM 7.4 mg/dL (8.6-10.2); CARBON DIOXIDE 25 mEQ/L (20-30); CHLORIDE 100 mEQ/L (98-107); CREATININE 0.6 mg/dL (0.7-1.2); HEMOLYSIS 2; MAGNESIUM 2.1 mg/dL (1.7-2.5); PHOSPHORUS 1.9 mg/dL (2.5-4.8); SODIUM 135 mEQ/L (135-145); TOTAL PROTEIN 3.8 g/dL (6.6-8.7)
[2016-10-06 06:29] LABS: PROTHROMBIN TIME 10.4 SEC (9.30-11.50)
[2016-10-06 07:40] VITALS: BP 143/70
--- NOTE | 2016-10-06 07:55 | 48 Hour Post Anesthesia Eval ---
Post Anesthesia Evaluation Procedure: EGD Date of Evaluation: October 06, 2016 Time of Evaluation: 07:45 Blood Pressure Systolic: 143 0: 70 Pulse Rate: 72 Respiratory Rate: 18 Temperature (Fahrenheit): 97.7 O2 Sat by Pulse Oximetry: 97 Airway: patent Nausea: No Vomiting: No Pain Intensity: 0 Hydration Status: adequate Cardiopulmonary Status: at baseline Mental Status/LOC: patient returned to baseline Post-Anesthesia Complications: 0 Follow-up care needed: N/A - further care as per primary team REHANA CUELLO M.D. October 06, 2016 07:55
[2016-10-06] MEDS: Methocarbamol 500mg tab ORAL SCH ×3 (08:33→17:29)
[2016-10-06] MEDS: Sucralfate 1gm tab ORAL SCH ×4 (08:33→21:09)
[2016-10-06] MEDS: Docusate 100mg cap ORAL SCH ×2 (08:33→17:28)
[2016-10-06 08:59] LABS: ANISOCYTOSIS 1+; BAND NEUTROPHILS % (MANUAL) 0 % (0-8); BASOPHILS % (MANUAL) 0 % (0-2); EOSINOPHILS % (MANUAL) 3 % (0-3); HYPOCHROMASIA 1+; LYMPHOCYTES % (MANUAL) 21 % (20-45); NEUTROPHILS % (MANUAL) 68 % (45-75); NUCLEATED RED BLOOD CELLS 2 /100 WBC; PLATELET ESTIMATE ADEQUATE; PLATELET MORPHOLOGY NORMAL; POLYCHROMASIA 1+; TOTAL CELLS COUNTED 100
[2016-10-06] MEDS ORDERED: Tubing IV Secondary IV ONE (10:08)
[2016-10-06] MEDS ORDERED: NS 275ml ONE (10:08)
[2016-10-06] MEDS ORDERED: D5NS 1000ml IV ONE (10:08)
[2016-10-06] MEDS ORDERED: Tubing Blood Filter IV ONE (10:08)
[2016-10-06] MEDS ORDERED: NS Irrig 1000ml ONE (10:08)
[2016-10-06 10:33] LABS: OTHERS PATHOLOGIST COMMENT
--- NOTE | 2016-10-06 10:46 | Internal Med Progress Note ---
Subjective Date of Service: October 06, 2016 Physician Name CallJaida martins Attending Physician Joseph Cedeno MD Current Medications Medications (Trade) Dose Ordered Sig/Bell Route PRN Reason Start Time Stop Time Status Last Admin Dose Admin Acetaminophen (Tylenol) 650 mg Q4H PRN ORAL Fever/Headache/Mild Pain 10/05/16 04:00 11/04/16 03:59 Acetaminophen/ Hydrocodone Bitart ([place] 5/325) 1 tab Q4H PRN ORAL Severe Pain (Pain Scale 7-10) 10/05/16 04:00 10/12/16 03:59 Al Hydroxide/Mg Hydroxide (Mylanta) 30 ml Q6H PRN ORAL INDIGESTION 10/05/16 08:30 11/04/16 08:29 Atorvastatin Calcium (Lipitor) 20 mg BEDTIME ORAL 10/05/16 21:00 11/04/16 20:59 10/05/16 21:25 Calcium Carbonate (Tums) 500 mg Q4H PRN ORAL INDIGESTION 10/05/16 03:00 11/04/16 02:59 Cefazolin Sodium/ Dextrose (Ancef/D5W) 55 ml @ 110 mls/hr Q8HR IVPB 10/05/16 06:00 10/12/16 05:59 10/06/16 06:04 Dextrose/Sodium Chloride (D5ns) 1,000 ml @ 75 mls/hr [id number] IV 10/06/16 02:00 11/05/16 01:59 Docusate Sodium (Colace) 100 mg TWICE A DAY ORAL 10/05/16 09:00 11/04/16 08:59 10/06/16 08:33 Lidocaine (Lidoderm 5% PATCH) 1 patch DAILY TDERMAL 10/05/16 09:00 11/04/16 08:59 10/06/16 08:33 Lorazepam (Ativan 2mg/ml 1ml) 1 mg Q6H PRN IV For Anxiety 10/05/16 08:15 10/12/16 08:14 Magnesium Hydroxide (Mom) 30 ml DAILYPRN PRN ORAL Constipation 10/05/16 11:00 11/04/16 10:59 Methocarbamol (Robaxin) 500 mg TID ORAL 10/05/16 09:00 11/04/16 08:59 10/06/16 08:33 Multivitamins 1 ml/Dextrose/ Sodium Chloride 1,001 ml @ 75 mls/hr Q24H IV 10/05/16 14:00 11/04/16 13:59 10/05/16 16:02 Ondansetron HCl (Zofran) 4 mg Q6H PRN IVP Nausea & Vomiting 10/05/16 07:45 11/04/16 07:44 Pantoprazole/ Sodium Chloride (Protonix/Sodium Chloride) 250 ml @ 25 mls/hr Q10H IV 10/05/16 09:00 11/04/16 08:59 10/06/16 05:03 Sucralfate 1 gm 1 gm FOUR TIMES A DAY ORAL 10/05/16 09:00 11/04/16 08:59 10/06/16 08:33 Temazepam 7.5 mg 7.5 mg DAILYPRN PRN ORAL Insomnia 10/05/16 07:45 10/12/16 07:44 10/05/16 21:25 Allergies: Coded Allergies: No Known Allergies (Unverified , 09/30/16) Subjective 71 YO M S/P prostatectomy 10/01/16. Transferred to [facility] for decreasing hemoglobin and oxygen saturation. Cover for Int Med-Dr Ferrera. S/P endoscopy today, 10/05/16. S/P transfusion 4 units PRBC Objective Last Vital Signs Date Time Temp Pulse Resp B/P Pulse Ox O2 Delivery O2 Flow Rate FiO2 10/06/16 07:55 72 18 97 10/06/16 07:40 97.7 143/70 Nasal Cannula 2.0 10/05/16 20:00 28 Laboratory Tests Test 10/05/16 16:05 10/06/16 03:55 White Blood Count 10.5 K/UL (4.8-10.8) 7.2 K/UL (4.8-10.8) Red Blood Count 2.39 M/UL (4.70-6.10) L 2.23 M/UL (4.70-6.10) L Hemoglobin 7.1 G/DL (14.2-18.0) L 6.8 G/DL (14.2-18.0) *L Hematocrit 20.8 % (42.0-52.0) L 19.4 % (42.0-52.0) L Mean Corpuscular Volume 87 FL (80-99) 87 FL (80-99) Mean Corpuscular Hemoglobin 29.7 PG (27.0-31.0) 30.4 PG (27.0-31.0) Mean Corpuscular Hemoglobin Concent 34.1 G/DL (32.0-36.0) 34.9 G/DL (32.0-36.0) Red Cell Distribution Width 12.9 % (11.6-14.8) 13.6 % (11.6-14.8) Platelet Count 167 K/UL (150-450) 144 K/UL (150-450) L Mean Platelet Volume 6.3 FL (6.5-10.1) L 6.2 FL (6.5-10.1) L Neutrophils (%) (Auto) % (45.0-75.0) % (45.0-75.0) Lymphocytes (%) (Auto) % (20.0-45.0) % (20.0-45.0) Monocytes (%) (Auto) % (1.0-10.0) % (1.0-10.0) Eosinophils (%) (Auto) % (0.0-3.0) % (0.0-3.0) Basophils (%) (Auto) % (0.0-2.0) % (0.0-2.0) Differential Total Cells Counted 100 100 Neutrophils % (Manual) 70 % (45-75) 68 % (45-75) Lymphocytes % (Manual) 16 % (20-45) L 21 % (20-45) Monocytes % (Manual) 8 % (1-10) 8 % (1-10) Eosinophils % (Manual) 2 % (0-3) 3 % (0-3) Basophils % (Manual) 0 % (0-2) 0 % (0-2) Band Neutrophils 2 % (0-8) 0 % (0-8) Atypical Lymphocytes Occasional Platelet Estimate Adequate Adequate Platelet Morphology Normal Normal Hypochromasia 2+ 1+ Anisocytosis 1+ 1+ Sodium Level 135 mEQ/L (135-145) 135 mEQ/L (135-145) Potassium Level 4.5 mEQ/L (3.4-4.9) 4.0 mEQ/L (3.4-4.9) Chloride Level 98 mEQ/L (98-107) 100 mEQ/L (98-107) Carbon Dioxide Level 25 mEQ/L (20-30) 25 mEQ/L (20-30) Anion Gap 12 (5-15) 10 (5-15) Blood Urea Nitrogen 34 mg/dL (7-23) H 22 mg/dL (7-23) Creatinine 0.6 mg/dL (0.7-1.2) L 0.6 mg/dL (0.7-1.2) L Estimat Glomerular Filtration Rate mL/min (>60) mL/min (>60) Glucose Level 102 mg/dL (74-106) 91 mg/dL (74-106) Calcium Level 7.7 mg/dL (8.6-10.2) L 7.4 mg/dL (8.6-10.2) L Phosphorus Level 1.7 mg/dL (2.5-4.8) L 1.9 mg/dL (2.5-4.8) L Magnesium Level 2.3 mg/dL (1.7-2.5) 2.1 mg/dL (1.7-2.5) Total Bilirubin 0.3 mg/dL (0.0-1.2) 0.2 mg/dL (0.0-1.2) Aspartate Amino Transf (AST/SGOT) 22 U/L (5-40) 21 U/L (5-40) Alanine Aminotransferase (ALT/SGPT) 9 U/L (3-41) 9 U/L (3-41) Alkaline Phosphatase 38 U/L (40-129) L 42 U/L (40-129) Total Protein 4.3 g/dL (6.6-8.7) L 3.8 g/dL (6.6-8.7) L Albumin 2.2 g/dL (3.5-5.2) L 2.1 g/dL (3.5-5.2) L Globulin 2.1 g/dL 1.7 g/dL Albumin/Globulin Ratio 1.0 (1.0-2.7) 1.2 (1.0-2.7) Nucleated Red Blood Cells 2 /100 WBC Other Cell Type Pathologist comment Polychromasia 1+ Prothrombin Time 10.4 SEC (9.30-11.50) Prothromb Time International Ratio 1.0 (0.9-1.1) Activated Partial Thromboplast Time 26 SEC (23-33) Intake and Output 10/05/16 10/06/16 19:00 07:00 Intake Total 783.3 ml 1494.5 ml Output Total 1200 ml Balance 783.3 ml 294.5 ml Intake Oral 240 ml IV Total 283.3 ml 972.5 ml Blood Product 500 ml 282 ml Output Urine Total 1200 ml Objective Objective General: No acute distress, awake and alert HEENT: NCAT, sclera anicteric, PERRL, EOMI. Neck: Supple, no significant jugular venous distention, Lungs: Fair inspiratory effort, no accessory muscle use, no Wheeze or Rales. Heart: Regular rate and rhythm, normal S1/S2, no murmurs Abdomen: soft, less lower Q tenderness, Mild distended. decrease bowel sounds. Lower abdominal surgical incision with dry dressing. / Rectal: Aragon cath with clear urine, DC Bladder irrigation. Extremities: No Cyanosis , clubbing or edema. Neuro: A&O x 3, Able to move all extremities Skin: warm, no rashes or lesions Psych: Normal mood and affect Assessment/Plan Problem List: (1) BPH (benign prostatic hypertrophy) Assessment & Plan: S/P prostatectomy 10/01/16. Cont cefazolin (2) GERD (gastroesophageal reflux disease) (3) Leukocytosis (4) Severe anemia Assessment & Plan: S/P transfusion 2 units PRBC. Transfuse another unit PRBC today. S/P endoscopy 10/05/16-gastric erosions. (5) Subcutaneous hematoma (6) Upper gastrointestinal bleeding Assessment & Plan: See GI note. Protonix drip (7) Hematuria Assessment & Plan: Resolved. See urology note. D/C aragon cath (8) Gastric erosions Assessment & Plan: See GI note. Cont carafate. Status: progressing Assessment/Plan Transfer to Med/Surg. Discharge planning JAIDA CALL October 06, 2016 10:46
--- NOTE | 2016-10-06 11:09 | GI Progress Note ---
Assessment/Plan Problems: (1) Gastric erosions ICD Codes: K25.9 - Gastric ulcer, unspecified as acute or chronic, without hemorrhage or perforation SNOMED: 336016084 (2) Hematuria ICD Codes: R31.9 - Hematuria, unspecified SNOMED: 68208943 (3) Upper gastrointestinal bleeding ICD Codes: K92.2 - Gastrointestinal hemorrhage, unspecified SNOMED: 87763923 (4) Severe anemia ICD Codes: D64.9 - Anemia, unspecified SNOMED: 637793521 (5) GERD (gastroesophageal reflux disease) ICD Codes: K21.9 - Gastro-esophageal reflux disease without esophagitis SNOMED: 697102560 (6) Hemorrhagic shock SNOMED: 998476 Status: stable Status Narrative Discussed with Dr. Saenz. Assessment/Plan S/P SUMMARY OF FINDINGS: 1. Severe distal esophagitis, inflammation, possible necrosis, very friable tissue, most probably the source of bleeding. 2. Gastritis, status post biopsy. 3. Large hiatal hernia. PLAN: OB stool negative monitor H&H, transfuse prn for Hgb < 8.0 ppi + carafate CLD, adv as tolerated iron deficient >> venofer fu labs Subjective Gastrointestinal/Abdominal: Reports: no symptoms Objective Last 24 Hour Vital Signs Date Time Temp Pulse Resp B/P Pulse Ox O2 Delivery O2 Flow Rate FiO2 10/06/16 07:55 72 18 97 10/06/16 07:40 97.7 72 18 143/70 97 Nasal Cannula 2.0 10/06/16 04:09 98.4 80 20 130/70 97 Nasal Cannula 2.0 10/06/16 03:11 65 10/06/16 00:12 98.6 70 19 134/53 95 Nasal Cannula 2.0 10/05/16 23:15 67 10/05/16 20:07 97.9 78 18 125/49 95 Nasal Cannula 2.0 10/05/16 20:00 95 Nasal Cannula 2.0 28 10/05/16 20:00 Nasal Cannula 2.0 28 10/05/16 19:27 74 10/05/16 16:33 97.7 80 20 97/57 93 Nasal Cannula 10/05/16 16:00 84 10/05/16 12:00 83 10/05/16 12:00 98.2 96 19 111/75 95 Nasal Cannula Intake and Output 10/05/16 10/06/16 19:00 07:00 Intake Total 783.3 ml 1494.5 ml Output Total 1200 ml Balance 783.3 ml 294.5 ml Intake Oral 240 ml IV Total 283.3 ml 972.5 ml Blood Product 500 ml 282 ml Output Urine Total 1200 ml Laboratory Tests Test 10/05/16 16:05 10/06/16 03:55 White Blood Count 10.5 K/UL (4.8-10.8) 7.2 K/UL (4.8-10.8) Red Blood Count 2.39 M/UL (4.70-6.10) L 2.23 M/UL (4.70-6.10) L Hemoglobin 7.1 G/DL (14.2-18.0) L 6.8 G/DL (14.2-18.0) *L Hematocrit 20.8 % (42.0-52.0) L 19.4 % (42.0-52.0) L Mean Corpuscular Volume 87 FL (80-99) 87 FL (80-99) Mean Corpuscular Hemoglobin 29.7 PG (27.0-31.0) 30.4 PG (27.0-31.0) Mean Corpuscular Hemoglobin Concent 34.1 G/DL (32.0-36.0) 34.9 G/DL (32.0-36.0) Red Cell Distribution Width 12.9 % (11.6-14.8) 13.6 % (11.6-14.8) Platelet Count 167 K/UL (150-450) 144 K/UL (150-450) L Mean Platelet Volume 6.3 FL (6.5-10.1) L 6.2 FL (6.5-10.1) L Neutrophils (%) (Auto) % (45.0-75.0) % (45.0-75.0) Lymphocytes (%) (Auto) % (20.0-45.0) % (20.0-45.0) Monocytes (%) (Auto) % (1.0-10.0) % (1.0-10.0) Eosinophils (%) (Auto) % (0.0-3.0) % (0.0-3.0) Basophils (%) (Auto) % (0.0-2.0) % (0.0-2.0) Differential Total Cells Counted 100 100 Neutrophils % (Manual) 70 % (45-75) 68 % (45-75) Lymphocytes % (Manual) 16 % (20-45) L 21 % (20-45) Monocytes % (Manual) 8 % (1-10) 8 % (1-10) Eosinophils % (Manual) 2 % (0-3) 3 % (0-3) Basophils % (Manual) 0 % (0-2) 0 % (0-2) Band Neutrophils 2 % (0-8) 0 % (0-8) Atypical Lymphocytes Occasional Platelet Estimate Adequate Adequate Platelet Morphology Normal Normal Hypochromasia 2+ 1+ Anisocytosis 1+ 1+ Sodium Level 135 mEQ/L (135-145) 135 mEQ/L (135-145) Potassium Level 4.5 mEQ/L (3.4-4.9) 4.0 mEQ/L (3.4-4.9) Chloride Level 98 mEQ/L (98-107) 100 mEQ/L (98-107) Carbon Dioxide Level 25 mEQ/L (20-30) 25 mEQ/L (20-30) Anion Gap 12 (5-15) 10 (5-15) Blood Urea Nitrogen 34 mg/dL (7-23) H 22 mg/dL (7-23) Creatinine 0.6 mg/dL (0.7-1.2) L 0.6 mg/dL (0.7-1.2) L Estimat Glomerular Filtration Rate mL/min (>60) mL/min (>60) Glucose Level 102 mg/dL (74-106) 91 mg/dL (74-106) Calcium Level 7.7 mg/dL (8.6-10.2) L 7.4 mg/dL (8.6-10.2) L Phosphorus Level 1.7 mg/dL (2.5-4.8) L 1.9 mg/dL (2.5-4.8) L Magnesium Level 2.3 mg/dL (1.7-2.5) 2.1 mg/dL (1.7-2.5) Total Bilirubin 0.3 mg/dL (0.0-1.2) 0.2 mg/dL (0.0-1.2) Aspartate Amino Transf (AST/SGOT) 22 U/L (5-40) 21 U/L (5-40) Alanine Aminotransferase (ALT/SGPT) 9 U/L (3-41) 9 U/L (3-41) Alkaline Phosphatase 38 U/L (40-129) L 42 U/L (40-129) Total Protein 4.3 g/dL (6.6-8.7) L 3.8 g/dL (6.6-8.7) L Albumin 2.2 g/dL (3.5-5.2) L 2.1 g/dL (3.5-5.2) L Globulin 2.1 g/dL 1.7 g/dL Albumin/Globulin Ratio 1.0 (1.0-2.7) 1.2 (1.0-2.7) Nucleated Red Blood Cells 2 /100 WBC Other Cell Type Pathologist comment Polychromasia 1+ Prothrombin Time 10.4 SEC (9.30-11.50) Prothromb Time International Ratio 1.0 (0.9-1.1) Activated Partial Thromboplast Time 26 SEC (23-33) Height (Feet): 6 Height (Inches): 2.00 Weight (Pounds): 200 General Appearance: no apparent distress, alert Cardiovascular: normal rate Respiratory/Chest: lungs clear, normal breath sounds Abdominal Exam: normal bowel sounds, non tender, soft Extremities: normal range of motion Rasheeda Jones N.P. October 06, 2016 11:09
[2016-10-06 11:53] VITALS: BP 155/73
--- NOTE | 2016-10-06 12:07 | Pulmonology Progress Note ---
Assessment/Plan Problems: (1) Hemorrhagic shock (2) Subcutaneous hematoma (3) GERD (gastroesophageal reflux disease) (4) Leukocytosis (5) BPH (benign prostatic hypertrophy) Assessment/Plan aragon was dc/ed advance diet check cbc today prbc prn symptomatic treatment Subjective ROS Limited/Unobtainable: No Constitutional: Reports: no symptoms HEENT: Repors: no symptoms Allergies: Coded Allergies: No Known Allergies (Unverified , 09/30/16) Objective Last 24 Hour Vital Signs Date Time Temp Pulse Resp B/P Pulse Ox O2 Delivery O2 Flow Rate FiO2 10/06/16 11:53 97.0 71 18 155/73 97 10/06/16 08:00 73 10/06/16 07:55 72 18 97 10/06/16 07:40 97.7 72 18 143/70 97 Nasal Cannula 2.0 10/06/16 04:09 98.4 80 20 130/70 97 Nasal Cannula 2.0 10/06/16 03:11 65 10/06/16 00:12 98.6 70 19 134/53 95 Nasal Cannula 2.0 10/05/16 23:15 67 10/05/16 20:07 97.9 78 18 125/49 95 Nasal Cannula 2.0 10/05/16 20:00 95 Nasal Cannula 2.0 28 10/05/16 20:00 Nasal Cannula 2.0 28 10/05/16 19:27 74 10/05/16 16:33 97.7 80 20 97/57 93 Nasal Cannula 10/05/16 16:00 84 Intake and Output 10/05/16 10/06/16 19:00 07:00 Intake Total 783.3 ml 1494.5 ml Output Total 1200 ml Balance 783.3 ml 294.5 ml Intake Oral 240 ml IV Total 283.3 ml 972.5 ml Blood Product 500 ml 282 ml Output Urine Total 1200 ml Objective receiving one more unit of prbc today. no obvious source of bleeding General Appearance: WD/WN HEENT: normocephalic Respiratory/Chest: chest wall non-tender, lungs clear Cardiovascular: normal peripheral pulses, normal rate Abdomen: normal bowel sounds, soft, non tender Extremities: no cyanosis Neurologic/Psychiatric: residence supervisor II-XII grossly normal Laboratory Tests 10/05/16 16:05: White Blood Count 10.5, Red Blood Count 2.39L, Hemoglobin 7.1L, Hematocrit 20.8L , Mean Corpuscular Volume 87, Mean Corpuscular Hemoglobin 29.7, Mean Corpuscular Hemoglobin Concent 34.1, Red Cell Distribution Width 12.9, Platelet Count 167, Mean Platelet Volume 6.3L, Neutrophils (%) (Auto) , Lymphocytes (%) ( Auto) , Monocytes (%) (Auto) , Eosinophils (%) (Auto) , Basophils (%) (Auto) , Differential Total Cells Counted 100, Neutrophils % (Manual) 70, Lymphocytes % ( Manual) 16L, Monocytes % (Manual) 8, Eosinophils % (Manual) 2, Basophils % ( Manual) 0, Band Neutrophils 2, Atypical Lymphocytes Occasional, Platelet Estimate Adequate, Platelet Morphology Normal, Hypochromasia 2+, Anisocytosis 1+ , Sodium Level 135, Potassium Level 4.5, Chloride Level 98, Carbon Dioxide Level 25, Anion Gap 12, Blood Urea Nitrogen 34H, Creatinine 0.6L, Estimat Glomerular Filtration Rate , Glucose Level 102, Calcium Level 7.7L, Phosphorus Level 1.7L, Magnesium Level 2.3, Total Bilirubin 0.3, Aspartate Amino Transf ( AST/SGOT) 22, Alanine Aminotransferase (ALT/SGPT) 9, Alkaline Phosphatase 38L, Total Protein 4.3L, Albumin 2.2L, Globulin 2.1, Albumin/Globulin Ratio 1.0 10/06/16 03:55: White Blood Count 7.2, Red Blood Count 2.23L, Hemoglobin 6.8*L, Hematocrit 19.4L , Mean Corpuscular Volume 87, Mean Corpuscular Hemoglobin 30.4, Mean Corpuscular Hemoglobin Concent 34.9, Red Cell Distribution Width 13.6, Platelet Count 144L, Mean Platelet Volume 6.2L, Neutrophils (%) (Auto) , Lymphocytes (%) (Auto) , Monocytes (%) (Auto) , Eosinophils (%) (Auto) , Basophils (%) (Auto) , Differential Total Cells Counted 100, Neutrophils % (Manual) 68, Lymphocytes % ( Manual) 21, Monocytes % (Manual) 8, Eosinophils % (Manual) 3, Basophils % ( Manual) 0, Band Neutrophils 0, Platelet Estimate Adequate, Platelet Morphology Normal, Hypochromasia 1+, Anisocytosis 1+, Sodium Level 135, Potassium Level 4.0 , Chloride Level 100, Carbon Dioxide Level 25, Anion Gap 10, Blood Urea Nitrogen 22, Creatinine 0.6L, Estimat Glomerular Filtration Rate , Glucose Level 91, Calcium Level 7.4L, Phosphorus Level 1.9L, Magnesium Level 2.1, Total Bilirubin 0.2, Aspartate Amino Transf (AST/SGOT) 21, Alanine Aminotransferase ( ALT/SGPT) 9, Alkaline Phosphatase 42, Total Protein 3.8L, Albumin 2.1L, Globulin 1.7, Albumin/Globulin Ratio 1.2, Nucleated Red Blood Cells 2, Other Cell Type Pathologist comment, Polychromasia 1+, Prothrombin Time 10.4, Prothromb Time International Ratio 1.0, Activated Partial Thromboplast Time 26 Current Medications Medications (Trade) Dose Ordered Sig/Bell Route PRN Reason Start Time Stop Time Status Last Admin Dose Admin Acetaminophen (Tylenol) 650 mg Q4H PRN ORAL Fever/Headache/Mild Pain 10/05/16 04:00 11/04/16 03:59 Acetaminophen/ Hydrocodone Bitart ([place] 5/325) 1 tab Q4H PRN ORAL Severe Pain (Pain Scale 7-10) 10/05/16 04:00 10/12/16 03:59 Al Hydroxide/Mg Hydroxide (Mylanta) 30 ml Q6H PRN ORAL INDIGESTION 10/05/16 08:30 11/04/16 08:29 Atorvastatin Calcium (Lipitor) 20 mg BEDTIME ORAL 10/05/16 21:00 11/04/16 20:59 10/05/16 21:25 Calcium Carbonate (Tums) 500 mg Q4H PRN ORAL INDIGESTION 10/05/16 03:00 11/04/16 02:59 Cefazolin Sodium/ Dextrose (Ancef/D5W) 55 ml @ 110 mls/hr Q8HR IVPB 10/05/16 06:00 10/12/16 05:59 10/06/16 06:04 Dextrose/Sodium Chloride 1,000 ml @ 75 mls/hr [id number] IV 10/06/16 02:00 11/05/16 01:59 Docusate Sodium (Colace) 100 mg TWICE A DAY ORAL 10/05/16 09:00 11/04/16 08:59 10/06/16 08:33 Iron Sucrose/ Sodium Chloride (Venofer/Sodium Chloride) 60 ml @ 240 mls/hr ONCE ONCE IVPB 10/07/16 21:00 10/07/16 21:14 Lidocaine (Lidoderm 5% PATCH) 1 patch DAILY TDERMAL 10/05/16 09:00 11/04/16 08:59 10/06/16 08:33 Lorazepam (Ativan 2mg/ml 1ml) 1 mg Q6H PRN IV For Anxiety 10/05/16 08:15 10/12/16 08:14 Magnesium Hydroxide (Mom) 30 ml DAILYPRN PRN ORAL Constipation 10/05/16 11:00 11/04/16 10:59 Methocarbamol (Robaxin) 500 mg TID ORAL 10/05/16 09:00 11/04/16 08:59 10/06/16 08:33 Multivitamins 1 ml/Dextrose/ Sodium Chloride 1,001 ml @ 75 mls/hr Q24H IV 10/05/16 14:00 11/04/16 13:59 10/05/16 16:02 Ondansetron HCl (Zofran) 4 mg Q6H PRN IVP Nausea & Vomiting 10/05/16 07:45 11/04/16 07:44 Pantoprazole/ Sodium Chloride (Protonix/Sodium Chloride) 250 ml @ 25 mls/hr Q10H IV 10/05/16 09:00 11/04/16 08:59 10/06/16 05:03 Phosphorus (Phospha 250 Neutral) 250 mg THREE TIMES A DAY ORAL 10/06/16 13:00 11/05/16 12:59 Sucralfate 1 gm 1 gm FOUR TIMES A DAY ORAL 10/05/16 09:00 11/04/16 08:59 10/06/16 08:33 Temazepam 7.5 mg 7.5 mg DAILYPRN PRN ORAL Insomnia 10/05/16 07:45 10/12/16 07:44 10/05/16 21:25 ROSLYN LANDEROS October 06, 2016 12:07
[2016-10-06] MEDS ORDERED: Phospha 250 Neutral tab ORAL SCH (13:00)
[2016-10-06] MEDS ORDERED: MULTIVITAMIN IV SCH (14:00)
[2016-10-06] MEDS ORDERED: D5NS IV SCH (14:00)
[2016-10-06] MEDS ORDERED: LORazepam Inj 2mg/ml 1ml IV PRN (14:15)
[2016-10-06] MEDS ORDERED: Norco 5mg/325mg tab ORAL PRN (14:30)
[2016-10-06] MEDS ORDERED: Milk of Magnesia 30ml Ud ORAL PRN (15:00)
[2016-10-06] MEDS ORDERED: Tums 500mg ORAL PRN (15:00)
--- NOTE | 2016-10-06 15:10 | General Progress Note ---
Assessment/Plan Status: stable Status Narrative Path GL 6 CAP incidental Per GI advance diet Assessment/Plan Blood transfusion NPO Possible removal aragon tomorrow Subjective ROS Limited/Unobtainable: Yes Allergies: Coded Allergies: No Known Allergies (Unverified , 09/30/16) Objective Last 24 Hour Vital Signs Date Time Temp Pulse Resp B/P Pulse Ox O2 Delivery O2 Flow Rate FiO2 10/06/16 12:00 67 10/06/16 11:53 97.0 71 18 155/73 97 10/06/16 08:00 73 10/06/16 07:55 72 18 97 10/06/16 07:40 97.7 72 18 143/70 97 Nasal Cannula 2.0 10/06/16 04:09 98.4 80 20 130/70 97 Nasal Cannula 2.0 10/06/16 03:11 65 10/06/16 00:12 98.6 70 19 134/53 95 Nasal Cannula 2.0 10/05/16 23:15 67 10/05/16 20:07 97.9 78 18 125/49 95 Nasal Cannula 2.0 10/05/16 20:00 95 Nasal Cannula 2.0 28 10/05/16 20:00 Nasal Cannula 2.0 28 10/05/16 19:27 74 10/05/16 16:33 97.7 80 20 97/57 93 Nasal Cannula 10/05/16 16:00 84 Intake and Output 10/05/16 10/06/16 19:00 07:00 Intake Total 783.3 ml 1494.5 ml Output Total 1200 ml Balance 783.3 ml 294.5 ml Intake Oral 240 ml IV Total 283.3 ml 972.5 ml Blood Product 500 ml 282 ml Output Urine Total 1200 ml Laboratory Tests 10/05/16 16:05: White Blood Count 10.5, Red Blood Count 2.39L, Hemoglobin 7.1L, Hematocrit 20.8L , Mean Corpuscular Volume 87, Mean Corpuscular Hemoglobin 29.7, Mean Corpuscular Hemoglobin Concent 34.1, Red Cell Distribution Width 12.9, Platelet Count 167, Mean Platelet Volume 6.3L, Neutrophils (%) (Auto) , Lymphocytes (%) ( Auto) , Monocytes (%) (Auto) , Eosinophils (%) (Auto) , Basophils (%) (Auto) , Differential Total Cells Counted 100, Neutrophils % (Manual) 70, Lymphocytes % ( Manual) 16L, Monocytes % (Manual) 8, Eosinophils % (Manual) 2, Basophils % ( Manual) 0, Band Neutrophils 2, Atypical Lymphocytes Occasional, Platelet Estimate Adequate, Platelet Morphology Normal, Hypochromasia 2+, Anisocytosis 1+ , Sodium Level 135, Potassium Level 4.5, Chloride Level 98, Carbon Dioxide Level 25, Anion Gap 12, Blood Urea Nitrogen 34H, Creatinine 0.6L, Estimat Glomerular Filtration Rate , Glucose Level 102, Calcium Level 7.7L, Phosphorus Level 1.7L, Magnesium Level 2.3, Total Bilirubin 0.3, Aspartate Amino Transf ( AST/SGOT) 22, Alanine Aminotransferase (ALT/SGPT) 9, Alkaline Phosphatase 38L, Total Protein 4.3L, Albumin 2.2L, Globulin 2.1, Albumin/Globulin Ratio 1.0 10/06/16 03:55: White Blood Count 7.2, Red Blood Count 2.23L, Hemoglobin 6.8*L, Hematocrit 19.4L , Mean Corpuscular Volume 87, Mean Corpuscular Hemoglobin 30.4, Mean Corpuscular Hemoglobin Concent 34.9, Red Cell Distribution Width 13.6, Platelet Count 144L, Mean Platelet Volume 6.2L, Neutrophils (%) (Auto) , Lymphocytes (%) (Auto) , Monocytes (%) (Auto) , Eosinophils (%) (Auto) , Basophils (%) (Auto) , Differential Total Cells Counted 100, Neutrophils % (Manual) 68, Lymphocytes % ( Manual) 21, Monocytes % (Manual) 8, Eosinophils % (Manual) 3, Basophils % ( Manual) 0, Band Neutrophils 0, Platelet Estimate Adequate, Platelet Morphology Normal, Hypochromasia 1+, Anisocytosis 1+, Sodium Level 135, Potassium Level 4.0 , Chloride Level 100, Carbon Dioxide Level 25, Anion Gap 10, Blood Urea Nitrogen 22, Creatinine 0.6L, Estimat Glomerular Filtration Rate , Glucose Level 91, Calcium Level 7.4L, Phosphorus Level 1.9L, Magnesium Level 2.1, Total Bilirubin 0.2, Aspartate Amino Transf (AST/SGOT) 21, Alanine Aminotransferase ( ALT/SGPT) 9, Alkaline Phosphatase 42, Total Protein 3.8L, Albumin 2.1L, Globulin 1.7, Albumin/Globulin Ratio 1.2, Nucleated Red Blood Cells 2, Other Cell Type Pathologist comment, Polychromasia 1+, Prothrombin Time 10.4, Prothromb Time International Ratio 1.0, Activated Partial Thromboplast Time 26 Height (Feet): 6 Height (Inches): 2.00 Weight (Pounds): 200 Joseph Cedeno MD October 06, 2016 15:10
[2016-10-06 15:46] VITALS: BP 153/75
[2016-10-06 17:20] LABS: BASOPHILS % (AUTO) 1.3 % (0.0-2.0); EOSINOPHILS % (AUTO) 4.5 % (0.0-3.0); LYMPHOCYTES % (AUTO) 22.4 % (20.0-45.0); MEAN CORPUSCULAR HEMOGLOBIN 32.4 PG (27.0-31.0); MEAN CORPUSCULAR HGB CONC 35.5 G/DL (32.0-36.0); MEAN CORPUSCULAR VOLUME 91 FL (80-99); MEAN PLATELET VOLUME 5.4 FL (6.5-10.1); MONOCYTES % (AUTO) 8.2 % (1.0-10.0); NEUTROPHILS % (AUTO) 63.6 % (45.0-75.0); PLATELET COUNT 149 K/UL (150-450); RED BLOOD COUNT 2.61 M/UL (4.70-6.10); RED CELL DISTRIBUTION WIDTH 13.6 % (11.6-14.8); WHITE BLOOD COUNT 7.5 K/UL (4.8-10.8)
[2016-10-06] MEDS: Phospha 250 Neutral tab ORAL SCH (17:29)
[2016-10-06 20:00] VITALS: BP 124/65
[2016-10-06] MEDS ORDERED: Atorvastatin 20mg tab ORAL SCH (21:00)
[2016-10-07] MEDS: Pantoprazole 80 MG in NS 250 ML IV SCH (00:23)
[2016-10-07 00:38] VITALS: BP 130/70
[2016-10-07 04:00] VITALS: BP 133/75
[2016-10-07] MEDS: ceFAZolin sod 1 GM in D5W 55 ML IVPB SCH ×2 (05:04→14:00)
[2016-10-07 07:04] LABS: MEAN CORPUSCULAR HEMOGLOBIN 29.9 PG (27.0-31.0); MEAN CORPUSCULAR HGB CONC 33.2 G/DL (32.0-36.0); MEAN CORPUSCULAR VOLUME 90 FL (80-99); PLATELET COUNT 164 K/UL (150-450); RED BLOOD COUNT 2.61 M/UL (4.70-6.10); RED CELL DISTRIBUTION WIDTH 14.5 % (11.6-14.8); WHITE BLOOD COUNT 4.9 K/UL (4.8-10.8)
[2016-10-07 07:28] LABS: ANION GAP 11 (5-15); CALCIUM 7.6 mg/dL (8.6-10.2); CARBON DIOXIDE 25 mEQ/L (20-30); CHLORIDE 100 mEQ/L (98-107); CREATININE 0.6 mg/dL (0.7-1.2); HEMOLYSIS 2; POTASSIUM 3.6 mEQ/L (3.4-4.9); SODIUM 136 mEQ/L (135-145)
[2016-10-07 07:33] VITALS: BP 115/62
[2016-10-07 08:59] LABS: ANISOCYTOSIS 1+; BAND NEUTROPHILS % (MANUAL) 0 % (0-8); BASOPHILS % (MANUAL) 0 % (0-2); EOSINOPHILS % (MANUAL) 6 % (0-3); HYPOCHROMASIA 3+; LYMPHOCYTES % (MANUAL) 34 % (20-45); NEUTROPHILS % (MANUAL) 50 % (45-75); PLATELET ESTIMATE ADEQUATE; PLATELET MORPHOLOGY NORMAL; POLYCHROMASIA 1+; SPHEROCYTES 1+; TOTAL CELLS COUNTED 100
[2016-10-07] MEDS ORDERED: Pantoprazole Inj IVP SCH (09:30)
--- NOTE | 2016-10-07 09:36 | GI Progress Note ---
Assessment/Plan Problems: (1) Gastric erosions ICD Codes: K25.9 - Gastric ulcer, unspecified as acute or chronic, without hemorrhage or perforation SNOMED: 146129028 (2) Hematuria ICD Codes: R31.9 - Hematuria, unspecified SNOMED: 58488319 (3) Upper gastrointestinal bleeding ICD Codes: K92.2 - Gastrointestinal hemorrhage, unspecified SNOMED: 89687828 (4) Severe anemia ICD Codes: D64.9 - Anemia, unspecified SNOMED: 591379492 (5) GERD (gastroesophageal reflux disease) ICD Codes: K21.9 - Gastro-esophageal reflux disease without esophagitis SNOMED: 250146854 (6) Hemorrhagic shock SNOMED: 160119 Status: stable Status Narrative Discussed with Dr. Saenz. Assessment/Plan S/P SUMMARY OF FINDINGS: 1. Severe distal esophagitis, inflammation, possible necrosis, very friable tissue, most probably the source of bleeding. 2. Gastritis, status post biopsy. 3. Large hiatal hernia. OB stool negative PLAN: ok for DC per GI standpoint >> Rx protonix + carafate (will give to RN) dc sitter dc ppi gtt >> ppi BID monitor H&H, transfuse prn for Hgb < 8.0 cardiac diet, tolerating iron deficient >> venofer fu labs Subjective Gastrointestinal/Abdominal: Reports: no symptoms Objective Last 24 Hour Vital Signs Date Time Temp Pulse Resp B/P Pulse Ox O2 Delivery O2 Flow Rate FiO2 10/07/16 07:33 98.4 68 18 115/62 93 Room Air 10/07/16 04:00 97.9 69 20 133/75 95 Room Air 10/07/16 01:26 98.1 10/07/16 00:38 98.1 72 19 130/70 96 Room Air 10/06/16 20:00 98.1 75 20 124/65 95 Room Air 10/06/16 19:52 Room Air 21 10/06/16 19:52 92 Room Air 21 10/06/16 15:46 98.1 70 18 153/75 98 Room Air 10/06/16 12:00 67 10/06/16 11:53 97.0 71 18 155/73 97 Intake and Output 10/06/16 10/07/16 19:00 07:00 Intake Total 1775 ml 240 ml Balance 1775 ml 240 ml Intake Oral 1100 ml 240 ml IV Total 675 ml # Voids 2 1 Laboratory Tests Test 10/06/16 16:30 10/07/16 05:50 White Blood Count 7.5 K/UL (4.8-10.8) 4.9 K/UL (4.8-10.8) Red Blood Count 2.61 M/UL (4.70-6.10) L 2.61 M/UL (4.70-6.10) L Hemoglobin 8.4 G/DL (14.2-18.0) L 7.8 G/DL (14.2-18.0) L Hematocrit 23.8 % (42.0-52.0) L 23.4 % (42.0-52.0) L Mean Corpuscular Volume 91 FL (80-99) 90 FL (80-99) Mean Corpuscular Hemoglobin 32.4 PG (27.0-31.0) H 29.9 PG (27.0-31.0) Mean Corpuscular Hemoglobin Concent 35.5 G/DL (32.0-36.0) 33.2 G/DL (32.0-36.0) Red Cell Distribution Width 13.6 % (11.6-14.8) 14.5 % (11.6-14.8) Platelet Count 149 K/UL (150-450) L 164 K/UL (150-450) Mean Platelet Volume 5.4 FL (6.5-10.1) L 6.0 FL (6.5-10.1) L Neutrophils (%) (Auto) 63.6 % (45.0-75.0) % (45.0-75.0) Lymphocytes (%) (Auto) 22.4 % (20.0-45.0) % (20.0-45.0) Monocytes (%) (Auto) 8.2 % (1.0-10.0) % (1.0-10.0) Eosinophils (%) (Auto) 4.5 % (0.0-3.0) H % (0.0-3.0) Basophils (%) (Auto) 1.3 % (0.0-2.0) % (0.0-2.0) Differential Total Cells Counted 100 Neutrophils % (Manual) 50 % (45-75) Lymphocytes % (Manual) 34 % (20-45) Monocytes % (Manual) 10 % (1-10) Eosinophils % (Manual) 6 % (0-3) H Basophils % (Manual) 0 % (0-2) Band Neutrophils 0 % (0-8) Platelet Estimate Adequate Platelet Morphology Normal Polychromasia 1+ Hypochromasia 3+ Anisocytosis 1+ Spherocytes 1+ Sodium Level 136 mEQ/L (135-145) Potassium Level 3.6 mEQ/L (3.4-4.9) Chloride Level 100 mEQ/L (98-107) Carbon Dioxide Level 25 mEQ/L (20-30) Anion Gap 11 (5-15) Blood Urea Nitrogen 14 mg/dL (7-23) Creatinine 0.6 mg/dL (0.7-1.2) L Estimat Glomerular Filtration Rate mL/min (>60) Glucose Level 100 mg/dL (74-106) Calcium Level 7.6 mg/dL (8.6-10.2) L Height (Feet): 6 Height (Inches): 2.00 Weight (Pounds): 200 General Appearance: no apparent distress, alert Cardiovascular: normal rate Respiratory/Chest: normal breath sounds, no respiratory distress Abdominal Exam: normal bowel sounds, non tender, soft Extremities: normal range of motion Rasheeda Jnoes N.P. October 07, 2016 09:36
[2016-10-07] MEDS: Docusate 100mg cap ORAL SCH (10:46)
[2016-10-07] MEDS: Sucralfate 1gm tab ORAL SCH ×2 (10:48→13:00)
[2016-10-07] MEDS: Methocarbamol 500mg tab ORAL SCH ×2 (10:55→13:00)
[2016-10-07] MEDS: Phospha 250 Neutral tab ORAL SCH ×2 (10:57→13:00)
[2016-10-07 12:17] VITALS: BP 137/76
[2016-10-07] MEDS ORDERED: D5NS IV SCH (14:00)
[2016-10-07] MEDS ORDERED: MULTIVITAMIN IV SCH (14:00)
--- NOTE | 2016-10-07 14:35 | Internal Med Progress Note ---
Subjective Physician Name IbanSelwyn cee Attending Physician Joseph Cedeno MD Current Medications Medications (Trade) Dose Ordered Sig/Bell Route PRN Reason Start Time Stop Time Status Last Admin Dose Admin Acetaminophen (Tylenol) 650 mg Q4H PRN ORAL Fever/Headache/Mild Pain 10/06/16 15:30 11/05/16 15:29 Acetaminophen/ Hydrocodone Bitart ([place] 5/325) 1 tab Q4H PRN ORAL Severe Pain (Pain Scale 7-10) 10/06/16 14:30 10/13/16 14:29 10/07/16 00:27 Al Hydroxide/Mg Hydroxide (Mylanta) 30 ml Q6H PRN ORAL INDIGESTION 10/06/16 14:30 11/05/16 14:29 Atorvastatin Calcium (Lipitor) 20 mg BEDTIME ORAL 10/06/16 21:00 11/05/16 20:59 10/06/16 21:09 Calcium Carbonate (Tums) 500 mg Q4H PRN ORAL INDIGESTION 10/06/16 15:00 11/05/16 14:59 Cefazolin Sodium 1 gm/Dextrose 55 ml @ 110 mls/hr Q8HR IVPB 10/06/16 22:00 10/13/16 21:59 10/07/16 05:04 Docusate Sodium (Colace) 100 mg TWICE A DAY ORAL 10/06/16 18:00 11/05/16 17:59 10/07/16 10:46 Iron Sucrose 100 mg/Sodium Chloride 60 ml @ 240 mls/hr ONCE ONCE IVPB 10/07/16 21:00 10/07/16 21:14 Lidocaine (Lidoderm 5% PATCH) 1 patch DAILY TDERMAL 10/07/16 09:00 11/06/16 08:59 10/07/16 10:21 Lorazepam (Ativan 2mg/ml 1ml) 1 mg Q6H PRN IV For Anxiety 10/06/16 14:15 10/13/16 14:14 Magnesium Hydroxide (Mom) 30 ml DAILYPRN PRN ORAL Constipation 10/06/16 15:00 11/05/16 14:59 Methocarbamol (Robaxin) 500 mg TID ORAL 10/06/16 18:00 11/05/16 17:59 10/07/16 10:55 Multivitamins/ Dextrose/Sodium Chloride (M.v.i.-12/D5ns) 1,010 ml @ 75 mls/hr Q24H IV 10/07/16 14:00 11/06/16 13:59 10/06/16 17:55 Ondansetron HCl (Zofran) 4 mg Q6H PRN IVP Nausea & Vomiting 10/06/16 14:30 11/05/16 14:29 Pantoprazole (Protonix) 40 mg EVERY 12 HOURS IVP 10/07/16 09:30 11/06/16 09:29 10/07/16 11:05 Phosphorus (Phospha 250 Neutral) 250 mg THREE TIMES A DAY ORAL 10/06/16 18:00 11/05/16 17:59 10/07/16 10:57 Sucralfate (Carafate) 1 gm FOUR TIMES A DAY ORAL 10/06/16 18:00 11/05/16 17:59 10/07/16 10:48 Temazepam (Restoril) 7.5 mg DAILYPRN PRN ORAL Insomnia 10/06/16 15:00 10/13/16 14:59 10/06/16 21:21 Allergies: Coded Allergies: No Known Allergies (Unverified , 09/30/16) Subjective awake, alert, responsive,No Back pain, Hgb 7.8 Objective Last Vital Signs Date Time Temp Pulse Resp B/P Pulse Ox O2 Delivery O2 Flow Rate FiO2 10/07/16 12:17 97.4 75 18 137/76 97 Room Air 10/06/16 19:52 21 10/06/16 07:40 2.0 Laboratory Tests Test 10/06/16 16:30 10/07/16 05:50 White Blood Count 7.5 K/UL (4.8-10.8) 4.9 K/UL (4.8-10.8) Red Blood Count 2.61 M/UL (4.70-6.10) L 2.61 M/UL (4.70-6.10) L Hemoglobin 8.4 G/DL (14.2-18.0) L 7.8 G/DL (14.2-18.0) L Hematocrit 23.8 % (42.0-52.0) L 23.4 % (42.0-52.0) L Mean Corpuscular Volume 91 FL (80-99) 90 FL (80-99) Mean Corpuscular Hemoglobin 32.4 PG (27.0-31.0) H 29.9 PG (27.0-31.0) Mean Corpuscular Hemoglobin Concent 35.5 G/DL (32.0-36.0) 33.2 G/DL (32.0-36.0) Red Cell Distribution Width 13.6 % (11.6-14.8) 14.5 % (11.6-14.8) Platelet Count 149 K/UL (150-450) L 164 K/UL (150-450) Mean Platelet Volume 5.4 FL (6.5-10.1) L 6.0 FL (6.5-10.1) L Neutrophils (%) (Auto) 63.6 % (45.0-75.0) % (45.0-75.0) Lymphocytes (%) (Auto) 22.4 % (20.0-45.0) % (20.0-45.0) Monocytes (%) (Auto) 8.2 % (1.0-10.0) % (1.0-10.0) Eosinophils (%) (Auto) 4.5 % (0.0-3.0) H % (0.0-3.0) Basophils (%) (Auto) 1.3 % (0.0-2.0) % (0.0-2.0) Differential Total Cells Counted 100 Neutrophils % (Manual) 50 % (45-75) Lymphocytes % (Manual) 34 % (20-45) Monocytes % (Manual) 10 % (1-10) Eosinophils % (Manual) 6 % (0-3) H Basophils % (Manual) 0 % (0-2) Band Neutrophils 0 % (0-8) Platelet Estimate Adequate Platelet Morphology Normal Polychromasia 1+ Hypochromasia 3+ Anisocytosis 1+ Spherocytes 1+ Sodium Level 136 mEQ/L (135-145) Potassium Level 3.6 mEQ/L (3.4-4.9) Chloride Level 100 mEQ/L (98-107) Carbon Dioxide Level 25 mEQ/L (20-30) Anion Gap 11 (5-15) Blood Urea Nitrogen 14 mg/dL (7-23) Creatinine 0.6 mg/dL (0.7-1.2) L Estimat Glomerular Filtration Rate mL/min (>60) Glucose Level 100 mg/dL (74-106) Calcium Level 7.6 mg/dL (8.6-10.2) L Intake and Output 10/06/16 10/07/16 19:00 07:00 Intake Total 1775 ml 240 ml Balance 1775 ml 240 ml Intake Oral 1100 ml 240 ml IV Total 675 ml # Voids 2 1 Objective General: No acute distress, awake and alert HEENT: NCAT, sclera anicteric, PERRL, EOMI. Neck: Supple, no significant jugular venous distention, Lungs: Fair inspiratory effort, no accessory muscle use, no Wheeze or Rales. Heart: Regular rate and rhythm, normal S1/S2, no murmurs Abdomen: soft, less lower Q tenderness, Mild distended. decrease bowel sounds. Lower abdominal surgical incision intact : Normal male organ Extremities: No Cyanosis , clubbing or edema. Neuro: A&O x 3, Able to move all extremities Skin: warm, no rashes or lesions Psych: Normal mood and affect Assessment/Plan Assessment/Plan Benign prostatic hypertrophy and urinary retention s/p Simple retropubic prostatectomy (10/01/2016). GERD HL Melanoma on chest s/p resection leukocytosis Lower back pain Hyponatremia pre-renal azotemia. Severe anemia due to GI Bleeding Severe distal esophagitis Gastritis, status post biopsy. Large hiatal hernia. Plan: On Protonix Monitor Labs ambulation F/u with Dr. Cedeno recommendation. DC Home today discuss with patient to F/U with with Dr. Saenz in 1 week for Biopsy result. Selwyn Ferrera MD October 07, 2016 14:35
[2016-10-07] MEDS ORDERED: CARAFATE1 G1 ORAL (14:41)
[2016-10-07] MEDS ORDERED: LIDODERM700 M1 TDERMAL (14:41)
[2016-10-07] MEDS ORDERED: Sterile Water Irrig 1000ml IRRIG ONE (15:24)
[2016-10-07] MEDS ORDERED: Tubing Blood Filter IV ONE (15:24)
[2016-10-07] MEDS ORDERED: NS 275ml ONE (15:24)
[2016-10-07] MEDS ORDERED: Iron Sucrose 100 MG in NS 55 ML IVPB ONE ×4 (21:00)
--- NOTE | 2016-10-07 22:32 | Pulmonology Progress Note ---
Assessment/Plan Problems: (1) Hemorrhagic shock (2) Subcutaneous hematoma (3) GERD (gastroesophageal reflux disease) (4) Leukocytosis (5) BPH (benign prostatic hypertrophy) Assessment/Plan aragon was dc/ed advance diet check cbc today prbc prn symptomatic treatment Subjective Allergies: Coded Allergies: No Known Allergies (Unverified , 09/30/16) Objective Last 24 Hour Vital Signs Date Time Temp Pulse Resp B/P Pulse Ox O2 Delivery O2 Flow Rate FiO2 10/07/16 12:17 97.4 75 18 137/76 97 Room Air 10/07/16 07:33 98.4 68 18 115/62 93 Room Air 10/07/16 04:00 97.9 69 20 133/75 95 Room Air 10/07/16 01:26 98.1 10/07/16 00:38 98.1 72 19 130/70 96 Room Air Intake and Output 10/06/16 10/07/16 19:00 07:00 Intake Total 1775 ml 240 ml Balance 1775 ml 240 ml Intake Oral 1100 ml 240 ml IV Total 675 ml # Voids 2 1 Objective receiving one more unit of prbc today. no obvious source of bleeding Laboratory Tests 10/07/16 05:50: White Blood Count 4.9, Red Blood Count 2.61L, Hemoglobin 7.8L, Hematocrit 23.4L , Mean Corpuscular Volume 90, Mean Corpuscular Hemoglobin 29.9, Mean Corpuscular Hemoglobin Concent 33.2, Red Cell Distribution Width 14.5, Platelet Count 164, Mean Platelet Volume 6.0L, Neutrophils (%) (Auto) , Lymphocytes (%) ( Auto) , Monocytes (%) (Auto) , Eosinophils (%) (Auto) , Basophils (%) (Auto) , Differential Total Cells Counted 100, Neutrophils % (Manual) 50, Lymphocytes % ( Manual) 34, Monocytes % (Manual) 10, Eosinophils % (Manual) 6H, Basophils % ( Manual) 0, Band Neutrophils 0, Platelet Estimate Adequate, Platelet Morphology Normal, Polychromasia 1+, Hypochromasia 3+, Anisocytosis 1+, Spherocytes 1+, Sodium Level 136, Potassium Level 3.6, Chloride Level 100, Carbon Dioxide Level 25, Anion Gap 11, Blood Urea Nitrogen 14, Creatinine 0.6L, Estimat Glomerular Filtration Rate , Glucose Level 100, Calcium Level 7.6L ROSLYN LANDEROS October 07, 2016 22:32
--- NOTE | 2016-10-08 21:22 | Discharge Summary ---
Discharge Summary Hospital Course Date of Admission October 01, 2016 at 05:38 Date of Discharge October 07, 2016 at 15:25 Admitting Diagnosis HPI Ab Regan is a 71 year old male who was admitted on October 01, 2016 at 05:38 for Enlarged Prostate,Urinary Retention Hospital Course [id number] Discharge Discharge Disposition Patient was discharged to home Discharge Diagnoses: Kenzie Jackson NP October 08, 2016 21:22
--- NOTE | 2016-10-09 05:21 | Discharge Summary 2 SIG ---
DATE OF ADMISSION: 10/01/2016 DATE OF DISCHARGE: 10/07/2016 CONSULTANTS: 1. Joseph Cedeno M.D. 2. Quintin De Los Santos M.D. 3. Jono Saenz M.D. BRIEF HOSPITAL COURSE: The patient is a 71-year-old male with history of hyperlipidemia, melanoma, and BPH with reported BPH symptoms progressive, and had frequent urination with small amounts and difficulty initiating stream, was admitted on 10/01/2016 and underwent simple retropubic prostatectomy. Postoperatively, the patient was given IV hydration and pain management. He was given Protonix and was ordered Lidoderm patch and Robaxin. He was encouraged ambulation. He had a drop in hemoglobin and a stat gastrointestinal referral was done. He underwent esophagogastroduodenoscopy on 10/05/2016 with findings of severe distal esophagitis, gastritis, and hiatal hernia. He was given proton pump inhibitors and Carafate p.o. The patient was transferred to [facility] for closer monitoring and was placed on NPO. Diet was eventually advanced as tolerated. He received a total of 6 units of packed RBC transfusion. Protonix drip was discontinued and was placed on b.i.d. He has been tolerating diet and hemoglobin had been stable. The patient was eventually discharged home. Advised to follow up with Dr. Saenz in a week to follow up biopsy results. FINAL DIAGNOSES: 1. Benign prostatic hypertrophy with urinary retention status post simple retropubic prostatectomy. 2. Acute severe anemia due to gastrointestinal bleed. 3. Gastroesophageal reflux disease. 4. Gastritis. 5. Large hiatal hernia. 6. Hyponatremia. 7. Melanoma on chest status post resection. 8. Hyperlipidemia. 9. Hyponatremia. 10. Prerenal azotemia. 11. Hemorrhagic shock. Selwyn Ferrera M.D. I have been assigned to dictate discharge summary on this account and I was not involved in the patient's management. Kenzie Licauco, N.P. DR: JADEN JOB#: [id number] CC:
== END 2016-10-07 15:25 | disposition home or self-care (01) | DRG 707 ==
LOC: SDSOVERFLO 05:38 → 3E 11:07 → 2W 10-05 01:52 → 4W 10-06 14:14
PROC: 0VT00ZZ Resection of Prostate, Open Approach (ICD-10-PCS; principal; 2016-10-01 07:30)
PROC: 30233N1 Transfusion of Nonautologous Red Blood Cells into Peripheral Vein, Percutaneous Approach (ICD-10-PCS; 2016-10-04)
PROC: 0DB68ZX Excision of Stomach, Via Natural or Artificial Opening Endoscopic, Diagnostic (ICD-10-PCS; 2016-10-05)
DX: N40.1 Benign prostatic hyperplasia with lower urinary tract symptoms (principal); R57.8 Other shock; E87.1 Hypo-osmolality and hyponatremia; D62 Acute posthemorrhagic anemia; K92.2 Gastrointestinal hemorrhage, unspecified; N32.89 Other specified disorders of bladder; R33.8 Other retention of urine; Z85.820 Personal history of malignant melanoma of skin; E78.5 Hyperlipidemia, unspecified; K29.70 Gastritis, unspecified, without bleeding; K44.9 Diaphragmatic hernia without obstruction or gangrene; K22.8 Other specified diseases of esophagus; K21.9 Gastro-esophageal reflux disease without esophagitis; M54.5 Low back pain; K20.8 Other esophagitis; R31.9 Hematuria, unspecified; S40.021A Contusion of right upper arm, initial encounter; X58.XXXA Exposure to other specified factors, initial encounter
CPT/HCPCS: 36415; 36600; 71010; 74000; 80048; 80053; 82270; 82803; 83735; 84100; 84484; 85007; 85025; 85610; 85730; 86850; 86900; 86901; 86920; 87081; 94003; 94150; 94760; C9399; J2180; J2405; J2710